=== PATIENT | female | born 1965 | race Caucasian/White ===

== ENCOUNTER 2021-06-18 12:41 | Emergency (ER) | payer OTHER, SELFPAY ==
--- NOTE | ~2021-06-18 | XR_ITS ---
EXAMINATION: XR CHEST CLINICAL INFORMATION: Chest pain COMPARISON: None TECHNIQUE: 2 views of the chest were obtained. FINDINGS: No significant abnormality is noted involving the heart, lungs, mediastinum, bony thorax or soft tissues. XR/XR chest 2V IMPRESSION: Unremarkable chest examination.
[2021-06-18 12:52] VITALS: BP 131/73; PULSE 100; RESP 18; O2SAT 99; BMI 25.2
[2021-06-18 13:29] VITALS: BP 134/73; PULSE 97; RESP 15; O2SAT 96
--- NOTE | 2021-06-18 13:35 | ED_ITS ---
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 Patient reports that she was at the store with her daughter when she started feeling very anxious. Patient reports that she was very tremorous and the next thing she knows she passed out. Her daughter was sitting next to her and brought her to emergency department. Patient reports that this happened to her several times. Patient denies CP, palpitations, presyncope, dizziness, weakness, malaise, abdominal pain, nausea, vomiting. Patient however does reports that she has been coughing for the past few weeks. She reports her cough is a dry cough no sputum no rhinorrhea, no congestion, no shortness of breath. Patient reports that she traveled to [place] last month and was admitted there for emphysema. Patient reports that her chest hurts from coughing. Related Data Previous Rx's Medication Instructions Recorded benzonatate 100 mg capsule 100 mg PO BID PRN #20 cap 06/18/21 Allergies Allergy/AdvReac Type Severity Reaction Status Date / Time diphenhydramine Allergy Unknown UNKNOWN Unverified 04/03/20 19:37 [From BENADRYL] dexamethasone [From Decadron] Allergy Unknown Verified 06/18/21 13:31 Review of Systems Review of Systems: Constitutional : No Weight loss, No Fever, No Chills, No Night Sweats, No Fatigue, No Malaise ENT/Mouth : No Hearing loss, No Ear Pain, No Nasal Congestion, No Sinus Pain, No Hoarseness, No sore throat, No Rhinorrhea, No Swallowing Difficulty Eyes: No Eye Pain, No Swelling, No Redness, No Foreign Body, No Discharge, No Vision Changes Cardiovascular : No Chest Pain, No SOB, No Dyspnea on Exertion, No Orthopnea, No Edema, No Palpitations Respiratory : Cough, No Sputum, No Wheezing, No Smoke Exposure, No Dyspnea Gastrointestinal : No Nausea, No Vomiting, No Diarrhea, No Constipation, No abdominal Pain, No Hematochezia, No Melena Genitourinary : no irregular bleeding, No Dysuria, No Urinary Frequency, No Hematuria, No Urinary Incontinence, No Urgency, No Flank Pain, No Urinary Flow Changes, No Hesitancy Musculoskeletal : No joint pain, No Myalgias, No Joint Swelling Skin : No Skin Lesions, No rash Neuro : No Weakness, No Numbness, No Paresthesias, No Loss of Consciousness, No Dizziness, No Headache Psych : No Anxiety/Panic, No Depression, No SI/HI/AH/VH, No Social Issues, Yes all other systems are reviewed and are negative PMFSH Social History Social History Advance Directives: No Advance Directives Information Provided: No Physical Exam Vital Signs: Vital Signs: Last Vital Signs Pulse 82 06/18/21 14:41 Resp 18 06/18/21 14:41 BP 126/54 L 06/18/21 14:41 Pulse Ox 99 06/18/21 14:41 BMI result Body Mass Index 25.2 Const: General: healthy appearing, no acute distress and well developed Nutritional Appearance: well nourished Orientation/consciousness: patient oriented x3 HENMT: Head: Yes normal to inspection, Yes normocephalic and Yes atraumatic Face and sinus: Yes normal facial exam Mouth: Normal oral and palatal mucosa present Throat: Yes posterior oropharynx normal, Yes tonsils normal and Yes uvula midline Eyes: General: appearance normal, both eyes and all related structures Neck: Neck: Yes normal visual inspection, Yes full ROM and Yes trachea midline Thyroid: Thyroid normal Resp: Effort & Inspection: normal respiratory effort, able to speak in complete sentences, no tracheal deviation and symmetric chest movement Auscultation: clear to auscultation bilaterally Cardio: Jugular venous distension: no JVD Rate: regular rate Heart sounds: S1 normal heart sound present, S2 normal heart sound present, no gallops and no murmurs GI: Inspection: Yes normal to inspection and No distended Palpation (GI): Soft to palpation, not firm, nontender and No hepatosplenomegaly present Auscultation: normal bowel sounds : General: Yes no CVA tenderness Back/Spine/Pelvis: Back: no CVA tenderness Skin: General skin exam: elasticity normal, turgor normal and dry skin Neuro: General: patient oriented x3 Psych: Appearance: grossly normal Mental Status: mental status grossly normal Speech and movement: Normal speech and movement present Affect: normal affect Attitude: cooperative Thought process: Normal thought process present Thought content: Normal thought content present Insight: Good insight present (Psych) Judgement: Good judgement present (Psych) Course Course Course Narrative: 56 years old female is here today after fainting episode at the store. Patient was at the grocery store with her daughter, started having an anxiety attack and the next thing she remembers she passed out. Patient reports that she has been dealing with an anxiety for a long time and has had those kind of episodes in the past. Patient denies presyncope, dizziness, weakness, CP, SOB with or without exertion. Patient denies any nausea or vomiting. Patient reports that she has been coughing in the last few weeks. Patient is fully vaccinated against COVID, denies any ill contacts. Patient reports that she has traveled to [place] month ago. Her symptoms of coughing without rhinitis, congestion. Patient reports to have a dry cough. We will do lab work, CBC, BMP troponin, patient is complaining of chest pressure most likely from cough pain reproducible , chest x-ray Reevaluation(s) Reevaluation #1: All lab work negative for any acute findings. Chest x-ray negative for acute processes. We will be discharging patient home. Patient reports that she has severe anxiety, takes risperidone and Klonopin at home. Patient has primary care provider and therapist that she sees. Patient was encouraged to follow-up with them. Patient states that she has an appointment with PCP on the . Medical Decision Making Lab Data Result diagrams: 06/18/21 14:10 06/18/21 14:37 Labs: Lab Results 06/18/21 06/18/21 06/18/21 Range/Units 12:48 14:10 14:10 WBC 6.3 (4.8-10.8) X10*3/uL RBC 4.16 L (4.20-5.50) X10*6/uL Hgb 11.1 L (12.0-16.0) g/dl Hct 36.1 L (37.0-47.0) % MCV 86.8 (80.0-98.0) fL MCH 26.7 L (27.0-33.0) pg MCHC 30.7 L (31.0-35.0) g/dl RDW 14.2 (11.0-16.0) % Plt Count 306 (160-400) X10*3/uL MPV 10.0 (9.4-12.3) fL Immature Gran % (Auto) 0.2 (0.0-0.4) % Neut % (Auto) 55.2 (45-73) % Lymph % (Auto) 31.4 (20-40) % [place] % (Auto) 7.4 (2-11) % Eos % (Auto) 5.2 H (0-4) % Baso % (Auto) 0.6 (0-2) % Lymph # (Auto) 2.0 (1.2-4.9) X10*3/uL [place] # (Auto) 0.5 (0.1-1.2) X10*3/uL Eos # (Auto) 0.3 (0.0-0.4) X10*3/uL Baso # (Auto) 0.0 (0.0-0.2) X10*3/uL Abs Immat Gran (auto) 0.01 (0.00-0.03) X10*3/uL Absolute Neuts (auto) 3.5 (2.0-8.3) x10*3/uL Absolute Nucleated RBC 0.000 (0.0-0.012) X10*3/uL Nucleated RBC % (auto) 0.0 (0.0-0.2) /100WBC Sodium (135-145) mmol/L Potassium (3.3-5.1) mmol/L Chloride (96-108) mmol/L Carbon Dioxide (22-29) mmol/L Anion Gap (12-20) BUN (9-16) mg/dL Creatinine (0.5-1.4) mg/dL Estim Creat Clear Calc Estimated GFR POC Glucose 120 H (60-115) mg/dL Random Glucose (60-115) mg/dL Calcium (8.4-10.2) mg/dL Troponin I High Sens < 3.5 (<3.5-17.0) ng/L Urine Color Urine Appearance Urine pH (5.0-8.0) Ur Specific [place] (1.005-1.025) Urine Protein (NEG-TRACE) MG/DL Urine Glucose (UA) (NEG) MG/DL Urine Ketones (NEG) MG/DL Urine Blood (NEG) Urine Nitrite (NEG) Ur Leukocyte Esterase (NEG) COVID-19 ([facility]) (Negative) COVID-19 Clin Com 06/18/21 06/18/21 06/18/21 Range/Units 14:10 14:21 14:37 WBC (4.8-10.8) X10*3/uL RBC (4.20-5.50) X10*6/uL Hgb (12.0-16.0) g/dl Hct (37.0-47.0) % MCV (80.0-98.0) fL MCH (27.0-33.0) pg MCHC (31.0-35.0) g/dl RDW (11.0-16.0) % Plt Count (160-400) X10*3/uL MPV (9.4-12.3) fL Immature Gran % (Auto) (0.0-0.4) % Neut % (Auto) (45-73) % Lymph % (Auto) (20-40) % [place] % (Auto) (2-11) % Eos % (Auto) (0-4) % Baso % (Auto) (0-2) % Lymph # (Auto) (1.2-4.9) X10*3/uL [place] # (Auto) (0.1-1.2) X10*3/uL Eos # (Auto) (0.0-0.4) X10*3/uL Baso # (Auto) (0.0-0.2) X10*3/uL Abs Immat Gran (auto) (0.00-0.03) X10*3/uL Absolute Neuts (auto) (2.0-8.3) x10*3/uL Absolute Nucleated RBC (0.0-0.012) X10*3/uL Nucleated RBC % (auto) (0.0-0.2) /100WBC Sodium 140 (135-145) mmol/L Potassium 4.4 (3.3-5.1) mmol/L Chloride 107 (96-108) mmol/L Carbon Dioxide 27 (22-29) mmol/L Anion Gap 10 L (12-20) BUN 10 (9-16) mg/dL Creatinine 0.68 (0.5-1.4) mg/dL Estim Creat Clear Calc 70.8 Estimated GFR > 60 POC Glucose (60-115) mg/dL Random Glucose 80 (60-115) mg/dL Calcium 9.3 (8.4-10.2) mg/dL Troponin I High Sens (<3.5-17.0) ng/L Urine Color YELLOW Urine Appearance CLEAR Urine pH 6.5 (5.0-8.0) Ur Specific [place] 1.020 (1.005-1.025) Urine Protein NEG (NEG-TRACE) MG/DL Urine Glucose (UA) NEG (NEG) MG/DL Urine Ketones NEG (NEG) MG/DL Urine Blood NEG (NEG) Urine Nitrite NEG (NEG) Ur Leukocyte Esterase NEG (NEG) COVID-19 ([facility]) Negative (Negative) COVID-19 Clin Com See Note Imaging Data Chest x-ray: Attestation: I personally reviewed and interpreted this imaging study as follows: Radiologist's impression: FINDINGS: No significant abnormality is noted involving the heart, lungs, mediastinum, bony thorax or soft tissues. Discharge Plan Discharge Clinical Impression: Chronic anxiety, Cough Patient Disposition: Home, Self-Care Instructions: Syncope (ED), Generalized Anxiety Disorder (ED), Chronic Cough (ED) Additional Instructions: Lo vieron aqu? hoy despu?s de tener un episodio de ansiedad. Inform? s?ntomas similares antes. Mackenzie un seguimiento con vick proveedor de atenci?n primaria. Se quej? de tos. Vick radiograf?a fue normal. Todos tus laboratorios tambi?n fueron normales. Mantenga vick eric con vick proveedor de atenci?n primaria el d?a 15 de [address]. . Puedes regresar al servicio de urgencias si cali s?ntomas empeoran o si experimenta alg?n s?ntoma adicional preocupante. Prescriptions: New benzonatate 100 mg capsule 100 mg PO BID PRN (Reason: cough) Qty: 20 RF: 0 Referrals: Laron Will NP [Primary Care Provider] - 1 week (Anxiety, syncope) Interventions: ED Discharge Assessment Last Done: 06/18/21 16:12 Discharge Date/Time: 06/18/21 16:12
[2021-06-18] MEDS: diazePAM 2 MG TABLET PO (14:16)
[2021-06-18] MEDS: Benzonatate 100 MG CAPSULE PO (14:16)
[2021-06-18] MEDS: 0.9 % Sodium Chloride 500 ML IV (14:18)
[2021-06-18 14:21] LABS: Basophils Percent Auto 0.6 % (0-2); Eosinophils Absolute Auto 0.3 X10*3/uL (0.0-0.4); Eosinophils Percent Auto 5.2 % (0-4); Hematocrit 36.1 % (37.0-47.0); Hemoglobin 11.1 g/dl (12.0-16.0); Imm Gran Abs Auto 0.01 X10*3/uL (0.00-0.03); Imm Gran Pct Auto 0.2 % (0.0-0.4); Lymphocytes Percent Auto 31.4 % (20-40); MANUAL DIFF FLAG NO; Mean Corpuscular HGB Conc 30.7 g/dl (31.0-35.0); Mean Corpuscular Hemoglobin 26.7 pg (27.0-33.0); Mean Corpuscular Volume 86.8 fL (80.0-98.0); Monocytes Absolute Auto 0.5 X10*3/uL (0.1-1.2); Monocytes Percent Auto 7.4 % (2-11); Neutrophils Absolute Auto 3.5 x10*3/uL (2.0-8.3); Neutrophils Percent Auto 55.2 % (45-73); Platelet Count 306 X10*3/uL (160-400); Red Blood Count 4.16 X10*6/uL (4.20-5.50); Red Cell Distribution Width 14.2 % (11.0-16.0); White Blood Count 6.3 X10*3/uL (4.8-10.8)
[2021-06-18 14:23] LABS: Glucose, Whole Blood 120 mg/dL (60-115)
[2021-06-18 14:41] VITALS: BP 126/54; PULSE 82; RESP 18; O2SAT 99
[2021-06-18 14:42] LABS: Appearance Urine CLEAR; Color Urine YELLOW; Glucose Urine UA NEG (NEG); Leukocyte Esterase Urine NEG (NEG); Nitrite Urine NEG (NEG); PH 6.5 (5.0-8.0); Urine Blood NEG (NEG); Urine Ketones NEG (NEG); Urine Protein NEG (NEG-TRACE)
[2021-06-18 14:43] LABS: Troponin-I High Sensitivity < 3.5 ng/L (<3.5-17.0)
[2021-06-18 14:46] LABS: COVID-19 Test Negative (Negative); IDNOW Serial# 9DD0AD1C
[2021-06-18 15:23] LABS: Anion Gap 10 (12-20); Blood Urea Nitrogen 10 mg/dL (9-16); Calcium 9.3 mg/dL (8.4-10.2); Carbon Dioxide 27 mmol/L (22-29); Chloride 107 mmol/L (96-108); Creatinine Clr Calc Pharmacy 70.8; Estimated Glomerular Filt Rate > 60; Glucose Random 80 mg/dL (60-115); Potassium 4.4 mmol/L (3.3-5.1); Sodium 140 mmol/L (135-145)
== END 2021-06-18 16:12 | disposition home or self-care (01) ==
PROVIDERS: Nurse Practitioner Family; Emergency Provider Emergency Medicine Emergency Medical Services; PCP Nurse Practitioner Family
DX: F41.9 Anxiety disorder, unspecified (principal); Z20.822 Contact with and (suspected) exposure to COVID-19; R05.9 Cough, unspecified
CPT/HCPCS: 36415; 71046; 80048; 81003; 82947; 84484; 85025; 87635; 96360; 99284

== ENCOUNTER 2021-10-27 08:17 | Emergency (ER) | payer OTHER, SELFPAY ==
--- NOTE | 2021-10-27 | ECG_ITS ---
Test Reason : cp Blood Pressure : / mmHG Vent. Rate : 089 BPM Atrial Rate : 089 BPM P-R Int : 148 ms QRS Dur : 084 ms QT Int : 342 ms P-R-T Axes : 052 007 061 degrees QTc Int : 416 ms Normal sinus rhythm Normal ECG When compared with ECG of 12-FEB-2020 07:47, No significant change was found Referred By: Generic ED Physician Electronically Signed By:Magen Scott
--- NOTE | ~2021-10-27 | XR_ITS ---
EXAMINATION: XR CHEST CLINICAL INFORMATION: Chest pain COMPARISON: Chest radiographs 06/18/2021, 10/04/2019 TECHNIQUE: Portable upright AP view of the chest was obtained. FINDINGS: There is no pneumothorax or pleural reaction. There is no lobar or segmental airspace consolidation or definite groundglass opacity. The costophrenic sulci are clear. The heart is normal in size. The vascularity is normal. The hilar and mediastinal contours and visualized bony structures are unremarkable. XR/XR chest 1V IMPRESSION: Unremarkable examination.
--- NOTE | 2021-10-27 08:31 | ED_ITS ---
HPI - Chest Pain General Chief Complaint: Chest Pain Stated Complaint: chest pain Time Seen by Provider: 10/27/21 08:31 Source: patient Mode of arrival: ambulatory Limitations: no limitations History of Present Illness HPI narrative: 56 y/o female with history of anxiety, depression, HLD, asthma, allergies presenting with intermittent, sharp, 8/10 nonradiating left sided chest pains that started yesterday when she was sitting on the couch. She states they last only seconds, come on fast and go away fast. They are not associated with SOB, nausea, diaphoresis or dizziness. She reports a pounding heart and fast heart rate when they happen. MD complaint: chest pain Pertinent past history: asthma Onset (ago): day(s) (1) Timing of current episode: episodic Prior episodes: No Onset: during rest Pain location: left chest Pain radiation: none Severity: severe Pain scale (0-10): 8 Quality: sharp Relieving factors: nothing Exacerbating factors: nothing Associated symptoms: palpitations Treatment prior to arrival: none Risk Factors Coronary artery disease risk factors: hyperlipidemia Thoracic aortic dissection risk factors: none Related Data On Oral Contraceptives: No Previous Rx's Medication Instructions Recorded benzonatate 100 mg capsule 100 mg PO BID PRN #20 cap 06/18/21 Allergies Allergy/AdvReac Type Severity Reaction Status Date / Time diphenhydramine Allergy Unknown UNKNOWN Verified 10/27/21 08:32 [From BENADRYL] dexamethasone [From Decadron] Allergy Unknown Verified 10/27/21 08:32 Review of Systems Review of Systems: Constitutional: No Fever, No Chills ENT/Mouth: No sore throat, No Rhinorrhea, No Swallowing Difficulty Eyes: No Eye Pain, No Swelling, No Redness Cardiovascular: + Chest Pain, No SOB, No Orthopnea, No Edema Respiratory: No Cough, No Sputum, No Wheezing, No dyspnea Gastrointestinal: No Nausea, No Vomiting, No Diarrhea, No abdominal Pain Genitourinary: No Dysuria, No Urinary Frequency, No Hematuria Musculoskeletal: No joint pain, No Myalgias Skin: No Skin Lesions, No rash Neuro: No Weakness, No Numbness, No Dizziness, No Headache Psych: + Anxiety/Panic, No Depression Heme/Lymph: No Bruising, No Lymphadenopathy Endocrine: No Polyuria, No Polydipsia PMFSH Social History Social History Advance Directives: No Advance Directives Information Provided: No Physical Exam Vital Signs: Vital Signs: Last Vital Signs Temp 98.4 F 10/27/21 09:38 Pulse 75 10/27/21 09:38 Resp 16 10/27/21 09:38 BP 96/43 L 10/27/21 09:38 Pulse Ox 99 10/27/21 09:38 BMI result Body Mass Index 29.2 Appearance: Alert. Oriented X3. No acute distress. Eyes: Pupils equal, round and reactive to light. ENT: Pharynx normal. Neck: Normal inspection. Neck supple. CVS: Normal heart rate and rhythm. Pulses normal. Respiratory: No respiratory distress. Breath sounds normal. Abdomen: Soft and nontender. +BS x4 Skin: Skin warm and dry. Normal skin color. Normal skin turgor. No rashes. Extremities: No lower extremity edema. No calf tenderness or swelling. Neuro: Oriented X 3. No motor deficit. No sensory deficit. Course Course Course Narrative: 56 y/o female with history of HLD, asthma, anxiety/depression presenting with intermittent nonradiating sharp pains on the left side of her chest that started yesterday and are associated with palpitations. No current chest pain. She is worried about her heart, admits to being anxious. No SOB. No PE risk factors, only CAD risk factor is HLD. No hx HTN, doubt dissection. EKG is normal. Will get high sensitivity troponin and monitor. Reevaluation(s) Reevaluation #1: Troponin is negative. CXR clear. Remains chest pain free. At this time life- threatening etiology of intermittent chest pains is very unlikely, anxiety likely contributing. Will refer to Cardiology for further work up. She agrees to follow up wtih her PCP or come back to the ER if symptoms worsen or change. court interpreter used to correctional substance abuse counselor and answer all questions. MDM - Chest Pain Medical Records Data Attestation: I reviewed the patient's medical records. Lab Data Attestation: I reviewed the patient's lab results. Result diagrams: 10/27/21 08:41 10/27/21 08:41 Labs: Lab Results 10/27/21 10/27/21 10/27/21 Range/Units 08:41 08:41 08:41 WBC 5.7 (4.8-10.8) X10*3/uL RBC 4.18 L (4.20-5.50) X10*6/uL Hgb 11.3 L (12.0-16.0) g/dl Hct 36.6 L (37.0-47.0) % MCV 87.6 (80.0-98.0) fL MCH 27.0 (27.0-33.0) pg MCHC 30.9 L (31.0-35.0) g/dl RDW 14.5 (11.0-16.0) % Plt Count 343 (160-400) X10*3/uL MPV 9.6 (9.4-12.3) fL Immature Gran % (Auto) 0.4 (0.0-0.4) % Neut % (Auto) 54.4 (45-73) % Lymph % (Auto) 31.6 (20-40) % [place] % (Auto) 7.8 (2-11) % Eos % (Auto) 5.1 H (0-4) % Baso % (Auto) 0.7 (0-2) % Lymph # (Auto) 1.8 (1.2-4.9) X10*3/uL [place] # (Auto) 0.4 (0.1-1.2) X10*3/uL Eos # (Auto) 0.3 (0.0-0.4) X10*3/uL Baso # (Auto) 0.0 (0.0-0.2) X10*3/uL Abs Immat Gran (auto) 0.02 (0.00-0.03) X10*3/uL Absolute Neuts (auto) 3.1 (2.0-8.3) x10*3/uL Absolute Nucleated RBC 0.000 (0.0-0.012) X10*3/uL Nucleated RBC % (auto) 0.0 (0.0-0.2) /100WBC Sodium 140 (135-145) mmol/L Potassium 3.8 (3.3-5.1) mmol/L Chloride 107 (96-108) mmol/L Carbon Dioxide 24 (22-29) mmol/L Anion Gap 13 (12-20) BUN 11 (9-16) mg/dL Creatinine 0.74 (0.5-1.4) mg/dL Estim Creat Clear Calc 72.8 Estimated GFR > 60 Random Glucose 121 H (60-115) mg/dL Calcium 9.8 (8.4-10.2) mg/dL Total Bilirubin 0.3 (0.0-1.0) mg/dL AST 25 (5-31) U/L ALT 36 H (0-31) U/L Alkaline Phosphatase 86 (39-117) U/L Troponin I High Sens < 3.5 (<3.5-17.0) ng/L Total Protein 7.1 (6.5-8.0) g/dL Albumin 4.2 (3.5-5.0) g/dL ECG Data ECG #1: Attestation: I personally reviewed and interpreted this ECG as follows: ECG interpretation date: 10/27/21 ECG interpretation time: 10:26 Interpretation: normal sinus rhythm, HR 89 bpm, normal GA interval, normal QTc, no ST segment elevations or depressions, normal ECG Discharge Plan Discharge Clinical Impression: Atypical chest pain Patient Disposition: Home, Self-Care Instructions: Chest Pain (DC) Additional Instructions: Your workup today was normal. Your EKG and labs were normal. Recommend following up with your doctor as well as a Bow Repairer [employer] for further workup - name and number below. If you develop new or worsening symptoms call 911 or come back to the ER for further evaluation. Vick trabajo de hoy fue normal. Vick electrocardiograma y cali laboratorios fueron normales. Recomiende hacer un seguimiento con vick m?dico y con un cardi?logo para realizar m?s estudios; nombre y n?adriana a continuaci?n. Si desarrolla s?ntomas nuevos o que empeoran, llame al 911 o regrese a la tamara de emergencias para lyudmila evaluaci?n adicional. Prescriptions: No Action benzonatate 100 mg capsule 100 mg PO BID PRN (Reason: cough) Qty: 20 0RF Referrals: Laron Will NP [Primary Care Provider] - 1 week (chest pain) Alejandro Kang MD [Physician] - 1 week (left sided chest pain) Print Language: French
[2021-10-27 08:32] VITALS: BP 137/67; PULSE 84; RESP 18; TEMP 36.8; O2SAT 99; BMI 29.2
[2021-10-27 08:46] LABS: MANUAL DIFF FLAG NO
[2021-10-27 08:47] LABS: Basophils Percent Auto 0.7 % (0-2); Eosinophils Absolute Auto 0.3 X10*3/uL (0.0-0.4); Eosinophils Percent Auto 5.1 % (0-4); Hematocrit 36.6 % (37.0-47.0); Hemoglobin 11.3 g/dl (12.0-16.0); Imm Gran Abs Auto 0.02 X10*3/uL (0.00-0.03); Imm Gran Pct Auto 0.4 % (0.0-0.4); Lymphocytes Absolute Auto 1.8 X10*3/uL (1.2-4.9); Lymphocytes Percent Auto 31.6 % (20-40); Mean Corpuscular HGB Conc 30.9 g/dl (31.0-35.0); Mean Corpuscular Volume 87.6 fL (80.0-98.0); Mean Platelet Volume 9.6 fL (9.4-12.3); Monocytes Absolute Auto 0.4 X10*3/uL (0.1-1.2); Monocytes Percent Auto 7.8 % (2-11); Neutrophils Absolute Auto 3.1 x10*3/uL (2.0-8.3); Neutrophils Percent Auto 54.4 % (45-73); Platelet Count 343 X10*3/uL (160-400); Red Blood Count 4.18 X10*6/uL (4.20-5.50); Red Cell Distribution Width 14.5 % (11.0-16.0); White Blood Count 5.7 X10*3/uL (4.8-10.8)
[2021-10-27 09:03] LABS: Alanine Aminotransferase 36 U/L (0-31); Albumin Level 4.2 g/dL (3.5-5.0); Alkaline Phosphatase 86 U/L (39-117); Anion Gap 13 (12-20); Aspartate Amino Transferase 25 U/L (5-31); Bilirubin Total 0.3 mg/dL (0.0-1.0); Blood Urea Nitrogen 11 mg/dL (9-16); Calcium 9.8 mg/dL (8.4-10.2); Carbon Dioxide 24 mmol/L (22-29); Chloride 107 mmol/L (96-108); Creatinine Clr Calc Pharmacy 72.8; Estimated Glomerular Filt Rate > 60; Glucose Random 121 mg/dL (60-115); Potassium 3.8 mmol/L (3.3-5.1); Sodium 140 mmol/L (135-145); Total Protein 7.1 g/dL (6.5-8.0)
[2021-10-27 09:10] LABS: Troponin-I High Sensitivity < 3.5 ng/L (<3.5-17.0)
[2021-10-27 09:38] VITALS: BP 96/43; PULSE 75; RESP 16; TEMP 36.9; O2SAT 99
== END 2021-10-27 10:49 | disposition home or self-care (01) ==
PROVIDERS: Emergency Provider Emergency Medicine; PCP Nurse Practitioner Family
DX: R07.89 Other chest pain (principal)
CPT/HCPCS: 36415; 71045; 80053; 84484; 85025; 93005; 99283

== ENCOUNTER 2023-06-21 20:10 | Emergency (ER) | payer MEDICAID, SELFPAY ==
--- NOTE | ~2023-06-21 | CT_ITS ---
EXAMINATION: CT CHEST WITHOUT CONTRAST CLINICAL INFORMATION: Chest wall pain after fall COMPARISON: Chest radiograph 10/27/2021 TECHNIQUE: Multidetector volumetric CT imaging of the chest was done. Axial MIP volume rendering provided. Sagittal and coronal reformatted images were obtained. This CT examination was performed using dose optimization techniques as appropriate, variously including the following: *Automated exposure control *Adjustment of mA and/or kV according to patient size (this includes techniques or standardized protocols for targeted exams where dose is matched to indication/reason for exam; i.e. extremities or head) *Use of iterative reconstruction technique DLP: 297 mGy-cm FINDINGS: CASTING TESTER: Hernia mesh overlies the upper abdomen LUNGS: The lungs are clear with no evidence of inflammation or worrisome nodules. A calcified granuloma is noted at the right lung base. MEDIASTINUM: The mediastinum is normal. CORONARY ARTERY CALCIFICATION: None visualized on this study. PLEURA: There is no no pneumothorax or hemothorax. No pleural effusion. No pleural mass or thickening. AXILLA: No lymphadenopathy. UPPER ABDOMEN: Unremarkable. OSSEOUS STRUCTURES: There is an acute fracture of the eighth lateral left rib. No other rib fractures are seen. The thoracic spine appears unremarkable. No clavicular or scapular fractures are seen. CT/CT chest wo IV con IMPRESSION: Acute left eighth lateral rib fracture. No pneumothorax or hemothorax. No other fractures are seen. Fleischner guidelines were followed.
--- NOTE | ~2023-06-21 | CT_ITS ---
EXAMINATION: CT head/brain wo IV con, CT cervical spine wo IV con INDICATION INFORMATION: Reason for Exam Fall, dizziness COMPARISON: None TECHNIQUE: Separate noncontrast CT examinations of the head and cervical spine were performed. Coronal and sagittal images were created for each examination at the technologist workstation. This CT examination was performed using dose optimization techniques as appropriate, variously including the following: *Automated exposure control *Adjustment of mA and/or kV according to patient size (this includes techniques or standardized protocols for targeted exams where dose is matched to indication/reason for exam; i.e. extremities or head) *Use of iterative reconstruction technique DLP: 854 mGy-cm FINDINGS: Head: No acute osseous or soft tissue abnormality. The mastoids are clear. Right ethmoid and maxillary sinus mucosal thickening. There is no evidence of acute intracranial hemorrhage or territorial infarction. No abnormal mass effect or midline shift is seen. Sanchez to white matter differentiation is well preserved. No extra-axial fluid collections are identified. No hydrocephalus. No significant volume loss. Patchy periventricular and deep white matter hypoattenuation is consistent with mild small vessel ischemic changes. Cervical spine: There is no evidence of acute cervical spine fracture. Vertebral bodies remain normal in height. Cervical straightening. Degenerative disc disease at C5-C6. No pre- or paravertebral soft tissue abnormality is identified. Visualized portions of the lung apices are unremarkable. The thyroid gland is unremarkable. CT/CT head/brain wo IV con IMPRESSION: 1. No acute intracranial abnormality. 2. No cervical spine fracture or traumatic malalignment.
--- NOTE | ~2023-06-21 | CT_ITS ---
EXAMINATION: CT head/brain wo IV con, CT cervical spine wo IV con INDICATION INFORMATION: Reason for Exam Fall, dizziness COMPARISON: None TECHNIQUE: Separate noncontrast CT examinations of the head and cervical spine were performed. Coronal and sagittal images were created for each examination at the technologist workstation. This CT examination was performed using dose optimization techniques as appropriate, variously including the following: *Automated exposure control *Adjustment of mA and/or kV according to patient size (this includes techniques or standardized protocols for targeted exams where dose is matched to indication/reason for exam; i.e. extremities or head) *Use of iterative reconstruction technique DLP: 854 mGy-cm FINDINGS: Head: No acute osseous or soft tissue abnormality. The mastoids are clear. Right ethmoid and maxillary sinus mucosal thickening. There is no evidence of acute intracranial hemorrhage or territorial infarction. No abnormal mass effect or midline shift is seen. Sanchez to white matter differentiation is well preserved. No extra-axial fluid collections are identified. No hydrocephalus. No significant volume loss. Patchy periventricular and deep white matter hypoattenuation is consistent with mild small vessel ischemic changes. Cervical spine: There is no evidence of acute cervical spine fracture. Vertebral bodies remain normal in height. Cervical straightening. Degenerative disc disease at C5-C6. No pre- or paravertebral soft tissue abnormality is identified. Visualized portions of the lung apices are unremarkable. The thyroid gland is unremarkable. CT/CT cervical spine wo IV con IMPRESSION: 1. No acute intracranial abnormality. 2. No cervical spine fracture or traumatic malalignment.
[2023-06-21 20:23] VITALS: BP 136/94; PULSE 63; O2SAT 94
[2023-06-21 20:27] VITALS: BP 129/64; PULSE 67; RESP 18; TEMP 36.5; O2SAT 96; BMI 25.5
--- NOTE | 2023-06-21 21:25 | ED.FALL ---
HPI - Fall General Chief Complaint: Fall Stated Complaint: FALL RIB & LEFT WRIST PAIN Time Seen by Provider: 06/21/23 20:18 Source: patient, family and qualitative field coordinator Mode of arrival: EMS History of Present Illness HPI Narrative: 58-year-old female, not on blood thinners, who fell on 11/16 when she suffered a mechanical slip and fall on the 4th step of a stairway, fell backwards struck the back of her head but did not lose consciousness. Patient has had associated neck pain, scalp pain but primarily patient complains of left-sided rib pain with some nausea and dizziness. Related Data Previous Rx's Medication Instructions Recorded benzonatate 100 mg capsule 100 mg PO BID PRN cough #20 caps 06/18/21 Allergies Allergy/AdvReac Type Severity Reaction Status Date / Time diphenhydramine Allergy Unknown UNKNOWN Verified 06/21/23 20:39 [From BENADRYL] dexamethasone [From Decadron] Allergy Unknown Verified 06/21/23 20:39 Review of Systems Review of Systems: Pertinent positives and negatives as stated in HPI [facility] Past Medical History Source: nursing notes reviewed Social History Social History Alcohol intake: never Smoked in Last 30 Days: No Use of substances other than those prescribed or required for medical reasons: No Advance Directives: No Advance Directives Information Provided: No Patient : No Physical Exam Vital Signs: Vital Signs: Last Vital Signs Temp 97.7 F 06/21/23 20:27 Pulse 67 06/21/23 20:27 Resp 18 06/21/23 20:27 BP 129/64 06/21/23 20:27 Pulse Ox 96 06/21/23 20:27 O2 Del Method Room Air 06/21/23 20:27 BMI result Body Mass Index 25.5 VITAL SIGNS: Reviewed. GENERAL: Well developed, well nourished, in no acute distress. HEAD: Normocephalic/atraumatic EYES: PERRLA, EOMI EARS: Ext canals without abnormality NOSE: Nares patent bilateral OROPHARYNX: no oral lesions noted, posterior pharynx clear NECK: C-collar in place, no midline cervical spine step-offs or pain noted LUNGS: Normal breath sounds. No adventitious sounds or accessory muscle use. SpO2<96>; CHEST WALL: There is mild tenderness to palpation without crepitus along the lower border of the left chest wall, there is no deformity but also no point tenderness. CARDIOVASCULAR: Regular rate and rhythm without noted murmurs ABDOMEN: Soft, non-tender, non-distended with bowel sounds. PELVIS: Stable, nontender MUSCULOSKELETAL: No tenderness, deformities, or effusions noted on gross inspection. EXTREMITIES: No cyanosis, clubbing or edema. SKIN: Inspection of the skin reveals no rashes NEUROLOGIC: Alert and oriented x 4. Strength and sensation to light touch were grossly intact x 4. Medications Administered Discontinued Medications Generic Name Dose Route Start Last Admin Trade Name Freq PRN Reason Stop Dose Admin Acetaminophen 975 mg 06/21/23 21:08 06/21/23 21:42 Acetaminophen 325 Mg Tablet PO 06/21/23 21:09 975 mg ONCE ONE Administration Ibuprofen 400 mg 06/21/23 21:08 06/21/23 21:42 Ibuprofen 400 Mg Tablet PO 06/21/23 21:09 400 mg ONCE ONE Administration Medical Decision Making Medical Decision Making MDM Narrative: 58-year-old female with history and clinical presentation consistent with mechanical fall and residual left-sided chest discomfort as well as neck pain, will image chest/head/cervical spine via CT scan. Patient also received combination analgesics. I reviewed all imaging studies and head CT is negative for intracranial hemorrhage, cervical spine is negative for fracture or subluxation otherwise my interpretation is in agreement with radiology's impression. CT of the chest shows an acute fracture of the left 8th rib, nondisplaced no evidence of pneumothorax. Patient received application of lidocaine patch and will also be discharged with an incentive spirometer for preventative measures against development of pneumonia. Differential Diagnosis Differential Diagnoses: The differential diagnosis associated with the presentation includes Please see the discussion Admission/Observation Consideration of admission/observation: Escalation of care including admission/observation considered Please see the discussion above Radiology Impression Discussion of test interpretation with radiology: I have reviewed the radiologist's reading. Radiologist Impression: Please see the discussion above External Record Review External record reviewed: Outpatient record, Prior outpatient labs and Prior outpatient radiology Discharge Plan Discharge Clinical Impression: Fall, Fracture of rib of left side Patient Disposition: Home, Self-Care Instructions: Rib Fracture (ED), Fall Prevention for Older Adults (ED), How to Use an Incentive Spirometer (ED) Additional Instructions: 1. Tylenol 1000 mg, por v?a oral, cada 6 horas seg?n sea necesario para controlar el dolor. No exceda los 4000 mg en 24 horas. 2. Ibuprofeno 400 mg, por v?a oral con leche o comida, cada 6 horas seg?n sea necesario para controlar el dolor. Combin? flakito medicamento con Tylenol para mejorar el alivio de los s?ntomas. 3. Se recomienda un parche de lidoca?na de venta tatiana; apl?quelo en el ?toni de m?xima sensibilidad mary se indica en el paquete exterior. 4. Utilice el espir?metro incentivador de 8 a 10 veces por hora mientras est? despierto, esto evitar? que desarrolle neumon?a. 5. Mackenzie un seguimiento con vick proveedor de atenci?n primaria en los pr?ximos 1 o 2 d?as. Regrese a la tamara de emergencias si los s?ntomas empeoran. 1. Tylenol 1000 mg, orally, every 6 hours as needed for pain control. Do not exceed 4000 mg within 24 hours. 2. Ibuprofen 400 mg, orally with milk or food, every 6 hours as needed for pain control. Combined this medication with Tylenol for improved symptom relief. 3. Recommend [id number]-hstysfp lidocaine patch, apply to area of maximal tenderness as directed on the outside packaging. 4. Please use the incentive spirometer, 8-10 times an hour while awake, this will prevent you from developing pneumonia. 5. Please follow-up with your primary care provider in the next 1-2 days. Return to the ER for any worsening symptoms. Prescriptions: No Action benzonatate 100 mg capsule 100 mg PO BID PRN (Reason: cough) Qty: 20 0RF Print Language: American
[2023-06-21] MEDS: Acetaminophen 325 MG TABLET 975 MG PO (21:42)
[2023-06-21] MEDS: Ibuprofen 400 MG TABLET PO (21:42)
[2023-06-21] MEDS: Lidocaine 4 % Patch ADH..PATCH 1 PATCH TRANSDERMA (23:33)
== END 2023-06-21 23:46 | disposition home or self-care (01) ==
PROVIDERS: Emergency Provider Student in an Organized Health Care Education/Training Program
DX: S22.32XA Fracture of one rib, left side, initial encounter for closed fracture (principal); M54.50 Low back pain, unspecified; R51.9 Headache, unspecified; M54.2 Cervicalgia; R42 Dizziness and giddiness; W10.9XXA Fall (on) (from) unspecified stairs and steps, initial encounter; Y93.9 Activity, unspecified; Y92.9 Unspecified place or not applicable; Y99.9 Unspecified external cause status
CPT/HCPCS: 70450; 71250; 72125; 99284

== ENCOUNTER 2023-06-27 11:20 | Emergency (ER) | payer OTHER, SELFPAY ==
--- NOTE | ~2023-06-27 | XR_ITS ---
EXAMINATION: XR CHEST CLINICAL INFORMATION: Pain COMPARISON: Chest radiograph from 10/27/2021 TECHNIQUE: 2 views of the chest were obtained. FINDINGS: No focal consolidation. No pneumothorax. Trachea is midline. Cardiac mediastinal silhouette is not enlarged. No large pleural effusion. Degenerative changes of the thoracolumbar spine. Soft tissues are unremarkable. XR/XR chest 2V IMPRESSION: No acute cardiopulmonary process.
[2023-06-27 11:43] VITALS: BP 134/59; PULSE 92; RESP 18; TEMP 36.6; O2SAT 96; BMI 24.2
--- NOTE | 2023-06-27 11:48 | ED_ITS ---
HPI - Chest Pain General Chief Complaint: Chest Pain Stated Complaint: Fx rib not getting better/Dizziness Time Seen by Provider: 06/27/23 14:00 Source: patient and paraprofessional interpreter Mode of arrival: ambulatory Limitations: no limitations History of Present Illness HPI narrative: 58-year-old female return to the ED for evaluation of left chest wall pain. Patient sustained a mechanical fall on 06/21/2023 causing left 8th rib fracture, patient was instructed to take Tylenol/ibuprofen if needed for pain returned today for persistent of severe pain and patient is been having hard time to do the breathing exercises that she was instructed to do. Related Data Previous Rx's Medication Instructions Recorded benzonatate 100 mg capsule 100 mg PO BID PRN cough #20 caps 06/18/21 oxycodone 5 mg tablet 5 mg PO Q8H PRN pain #20 tabs 06/27/23 Allergies Allergy/AdvReac Type Severity Reaction Status Date / Time No Known Allergies Allergy Verified 06/27/23 11:52 Review of Systems 2 Review of Systems: All other systems are reviewed and are negative Constitutional: Reports as per HPI and Reports no additional constitutional complaints Eyes: Reports as per HPI and Reports no additional eye complaints Reports system reviewed and no additional complaints, except as documented Cardiovascular: Reports as per HPI and Reports no additional cardiovascular complaints Respiratory: Reports as per HPI and Reports no additional respiratory complaints Gastrointestinal: Reports as per HPI and Reports no additional gastrointestinal complaints Genitourinary: Reports no additional female genitourinary complaints Musculoskeletal: Reports no additional musculoskeletal complaints Skin/Breast: Reports system reviewed and no additional complaints, except as docu Psychiatric: Reports no additional psychiatric complaints Endocrine: Reports no additional endocrine complaints Hematologic/Lymphatic: Reports no additional hematologic/lymphatic complaints Allergic/Immunologic: Reports no additional allergic/immunologic complaints Reports system reviewed and no additional complaints, except as documented and Reports Abnormal speech present [facility] Social History Social History Alcohol intake: never Advance Directives: No Advance Directives Information Provided: Yes Physical Exam 2 Vital Signs: Vital Signs: Last Vital Signs Temp 97.8 F 06/27/23 11:43 Pulse 92 06/27/23 11:43 Resp 18 06/27/23 11:43 BP 134/59 L 06/27/23 11:43 Pulse Ox 96 06/27/23 11:43 O2 Del Method Room Air 06/27/23 11:43 BMI result Body Mass Index 24.2 Vital signs have been reviewed and appear to be correct. Blood pressure elevated. Heart rate normal. Respiratory rate normal. Temperature normal. Oxygen saturation normal. Appearance: Alert. Oriented X3. No acute distress. Head: Normal external exam. Normocephalic. Atraumatic. No Arce signs noted. No raccoon eyes noted Eyes: PERRLA. EOMI. Conjunctiva and sclera normal. Eyelids normal. ENT: TM's Normal. Pharynx normal. Uvula midline. Moist mucous membranes. No trismus noted. No drooling noted. No muffled voice noted. Neck: Normal inspection. Neck supple. FROM. No adenopathy. Thyroid Normal. No meningeal signs. No neck mass noted. CVS: Normal heart rate and rhythm. Heart sound normal. No murmurs noted. Pulses normal throughout. Respiratory: No respiratory distress. Painless inspiration. Breath sounds normal. No wheezes/rales/rhonchi noted. Reproducible tenderness over left 8 rib. No accessory muscle usage noted or decreased air movement noted. Abdomen: Soft and nontender. Bowel sounds normal in all 4 quadrants. No distention noted. No organomegaly noted. No visible injury noted. Back: No CVA tenderness. Full range of motion noted. Skin: Skin warm and dry. Normal skin color. Normal skin turgor. No rashes/lesions/lacerations noted. Extremities: No lower extremity edema. Extremities exhibit normal range of motion. Extremities nontender. Neuro: Oriented X 3. Cranial nerve exam: II-XII are grossly intact No motor deficit. No sensory deficit. Reflexes normal. Course Course Course Narrative: Patient complains of feeling dizzy with some chest pain for the last several days, pain lasts for 5 minutes sometimes longer and then goes away, not related to exertion, no syncope no shortness of breath Labs chest ray EKG ordered Patient is well-appearing no chest pain at this moment, she does have a history of a rib fracture on the left side 1 week ago, but she says the new chest pain with dizziness lasting 5 minutes at a time is very different from the ongoing pain from the rib fracture different location different feeling This is rapid medical exam done in triage pending full evaluation by ER provider Reevaluation(s) Reevaluation #1: Left 8th rib fracture, no pneumothorax, patient was instructed to do the deep breathing exercising. Will discharge the patient on oxycodone to help with the pain. Time: 14:22 Medical Decision Making Differential Diagnosis Differential Diagnoses: The differential diagnosis associated with the presentation includes (Chest wall pain, rib fracture, pneumothorax, pleural effusion, ACS, electrolyte abnormality, severe anemia.) Admission/Observation Consideration of admission/observation: Escalation of care including admission/observation considered Lab Data MDM Lab Attestation statement: I reviewed the patient's lab results. 06/27/23 12:14 06/27/23 12:14 Labs: Lab Results 06/27/23 Range/Units 12:14 WBC 6.6 (4.8-10.8) X10*3/uL RBC 4.59 (4.20-5.50) X10*6/uL Hgb 13.4 (12.0-16.0) g/dl Hct 41.8 (37.0-47.0) % MCV 91.1 (80.0-98.0) fL MCH 29.2 (27.0-33.0) pg MCHC 32.1 (31.0-35.0) g/dl RDW 12.7 (11.0-16.0) % Plt Count 274 (160-400) X10*3/uL MPV 10.2 (9.4-12.3) fL Immature Gran % (Auto) 0.3 (0.0-0.4) % Neut % (Auto) 61.4 (45-73) % Lymph % (Auto) 28.5 (20-40) % [place] % (Auto) 5.3 (2-11) % Eos % (Auto) 3.6 (0-4) % Baso % (Auto) 0.9 (0-2) % Lymph # (Auto) 1.9 (1.2-4.9) X10*3/uL [place] # (Auto) 0.4 (0.1-1.2) X10*3/uL Eos # (Auto) 0.2 (0.0-0.4) X10*3/uL Baso # (Auto) 0.1 (0.0-0.2) X10*3/uL Abs Immat Gran (auto) 0.02 (0.00-0.03) X10*3/uL Absolute Neuts (auto) 4.1 (2.0-8.3) x10*3/uL Absolute Nucleated RBC 0.000 (0.0-0.012) X10*3/uL Nucleated RBC % (auto) 0.0 (0.0-0.2) /100WBC PT 11.8 (11.1-13.3) SEC INR 1.0 (0.9-1.1) Sodium 142 (135-145) mmol/L Potassium 4.1 (3.3-5.1) mmol/L Chloride 107 (96-108) mmol/L Carbon Dioxide 27 (22-29) mmol/L Anion Gap 12 (12-20) BUN 11 (9-16) mg/dL Creatinine 0.79 (0.5-1.4) mg/dL Estim Creat Clear Calc 63.6 Estimated GFR > 60 Random Glucose 100 (60-115) mg/dL Calcium 10.7 H D (8.4-10.2) mg/dL Troponin I High Sens < 2.7 (<3.5-17.0) ng/L Independent Interpretation I performed an independent interpretation of an: Plain X-Ray (Chest: Left 8th rib fracture.) Radiology Impression Discussion of test interpretation with radiology: I have reviewed the radiologist's reading. Discharge Plan Discharge Clinical Impression: Fracture of rib Patient Disposition: Home, Self-Care Instructions: Rib Fracture (ED) Additional Instructions: Do breathing exercises as we discussed at least 10 times every 3 hours take the prescribed pain medication 30 minutes before you start to exercise to help alleviate the pain. Prescriptions: New oxycodone 5 mg tablet 5 mg PO Q8H PRN (Reason: pain) Qty: 20 0RF Rx Instructions: Partial Fill upon patient request. No Action benzonatate 100 mg capsule 100 mg PO BID PRN (Reason: cough) Qty: 20 0RF Referrals: Laron Will NP [Primary Care Provider] -
--- NOTE | 2023-06-27 11:52 | ECG_ITS ---
Test Reason : CHEST PAIN Blood Pressure : / mmHG Vent. Rate : 091 BPM Atrial Rate : 091 BPM P-R Int : 140 ms QRS Dur : 108 ms QT Int : 370 ms P-R-T Axes : 038 -11 019 degrees QTc Int : 455 ms Normal sinus rhythm Incomplete right bundle branch block Septal infarct , age undetermined Abnormal ECG When compared with ECG of 27-OCT-2021 08:17, Incomplete right bundle branch block is now Present Referred By: Fabrizio Hunt Electronically Signed By:Magen Scott
[2023-06-27 12:39] LABS: MANUAL DIFF FLAG NO
[2023-06-27 12:46] LABS: Prothrombin Time 11.8 SEC (11.1-13.3)
[2023-06-27 12:47] LABS: Basophils Absolute Auto 0.1 X10*3/uL (0.0-0.2); Basophils Percent Auto 0.9 % (0-2); Eosinophils Absolute Auto 0.2 X10*3/uL (0.0-0.4); Eosinophils Percent Auto 3.6 % (0-4); Hematocrit 41.8 % (37.0-47.0); Hemoglobin 13.4 g/dl (12.0-16.0); Imm Gran Abs Auto 0.02 X10*3/uL (0.00-0.03); Imm Gran Pct Auto 0.3 % (0.0-0.4); Lymphocytes Absolute Auto 1.9 X10*3/uL (1.2-4.9); Lymphocytes Percent Auto 28.5 % (20-40); Mean Corpuscular HGB Conc 32.1 g/dl (31.0-35.0); Mean Corpuscular Hemoglobin 29.2 pg (27.0-33.0); Mean Corpuscular Volume 91.1 fL (80.0-98.0); Mean Platelet Volume 10.2 fL (9.4-12.3); Monocytes Absolute Auto 0.4 X10*3/uL (0.1-1.2); Monocytes Percent Auto 5.3 % (2-11); Neutrophils Absolute Auto 4.1 x10*3/uL (2.0-8.3); Neutrophils Percent Auto 61.4 % (45-73); Platelet Count 274 X10*3/uL (160-400); Red Blood Count 4.59 X10*6/uL (4.20-5.50); Red Cell Distribution Width 12.7 % (11.0-16.0); White Blood Count 6.6 X10*3/uL (4.8-10.8)
--- NOTE | 2023-06-27 13:00 | PC.NURSE ---
Patient ambulatory to radiology for Xrays with a steady gait.
[2023-06-27 13:16] LABS: Anion Gap 12 (12-20); Blood Urea Nitrogen 11 mg/dL (9-16); Calcium 10.7 mg/dL (8.4-10.2); Carbon Dioxide 27 mmol/L (22-29); Chloride 107 mmol/L (96-108); Creatinine Clr Calc Pharmacy 63.6; Estimated Glomerular Filt Rate > 60; Glucose Random 100 mg/dL (60-115); Potassium 4.1 mmol/L (3.3-5.1); Sodium 142 mmol/L (135-145); Troponin-I High Sensitivity < 2.7 ng/L (<3.5-17.0)
[2023-06-27 15:06] VITALS: BP 115/56; PULSE 74; RESP 17; O2SAT 97
--- NOTE | 2023-06-27 15:25 | PC.NURSE ---
assumed care of pt at 1515. pt awaiting discharge instructions to be ready. will call for sustainability purchasing agent when available and to give incentive spirometer instructions. pt change into own clothes ready to go home.
== END 2023-06-27 15:52 | disposition home or self-care (01) ==
PROVIDERS: Physician Assistant Medical; Emergency Provider Emergency Medicine; PCP Nurse Practitioner Family
DX: R07.81 Pleurodynia (principal); S22.32XD Fracture of one rib, left side, subsequent encounter for fracture with routine healing; W01.0XXD Fall on same level from slipping, tripping and stumbling without subsequent striking against object, subsequent encounter
CPT/HCPCS: 36415; 71046; 80048; 84484; 85025; 85610; 93005; 99283; 99284

== ENCOUNTER → 2023-06-27 11:52 | Outpatient (BNV) | payer OTHER, SELFPAY | PROVIDERS: Emergency Provider Emergency Medicine; PCP Nurse Practitioner Family; Visit Provider Internal Medicine Cardiovascular Disease | DX: R94.31 Abnormal electrocardiogram [ECG] [EKG] (principal); R07.9 Chest pain, unspecified | CPT/HCPCS: 93010 ==

== ENCOUNTER 2023-08-06 00:08 | Emergency (ER) | payer OTHER, SELFPAY ==
--- NOTE | ~2023-08-06 | CT_ITS ---
EXAMINATION: CT ABDOMEN AND PELVIS WITHOUT CONTRAST CLINICAL INFORMATION: Left flank pain. COMPARISON: Correlation made with CT of the chest performed 06/21/2023. TECHNIQUE: Multidetector volumetric imaging was performed from the superior aspect of the liver through the pubic symphysis. Sagittal and coronal reformatted images were obtained on the technologist's workstation. This CT examination was performed using dose optimization techniques as appropriate, variously including the following: *Automated exposure control *Adjustment of mA and/or kV according to patient size (this includes techniques or standardized protocols for targeted exams where dose is matched to indication/reason for exam; i.e. extremities or head) *Use of iterative reconstruction technique DLP: 424 mGy-cm FINDINGS: LUNG BASES: The visualized lung bases are unremarkable. LIVER, GALLBLADDER, AND BILIARY TREE: There is a 1.3 cm hypodensity inferior right lobe the liver likely a small cyst. There is also a nonspecific 8 mm hypodensity right lobe the liver which was seen on prior CT and is stable. There is no intrahepatic biliary duct dilatation. The gallbladder is unremarkable with no evidence of radiopaque gallstones, gallbladder wall thickening, or obvious pericholecystic inflammatory changes. PANCREAS: Unremarkable. SPLEEN: Unremarkable. ADRENAL GLANDS: Unremarkable. KIDNEYS AND URETERS: The kidneys are normal in size and location. There is a 2.5 mm calculus lower pole left kidney as well as a 2.5 mm calculus mid to upper pole left kidney. There is a 2.4 cm parapelvic cyst midpole right kidney and a 1.4 cm cyst to lower pole left kidney. There is a 1.6 cm cyst mid to upper pole left kidney. There is no hydronephrosis. BLADDER: Unremarkable. GASTROINTESTINAL TRACT: There is retained stool. There are scattered diverticula of the descending colon without diverticulitis. ABDOMINAL WALL: A midline abdominal hernia repair mesh is noted in place. LYMPH NODES: Normal. VASCULAR: There is atherosclerotic plaque of the abdominal aorta and proximal branches. PELVIC VISCERA: Unremarkable. OSSEOUS STRUCTURES: Unremarkable. CT/CT abdomen pelvis wo IV con IMPRESSION: Small nonobstructing left renal stones. Bilateral renal cysts. Diverticulosis of the descending colon and retained stool in the colon. No acute intra-abdominal process seen. Fleischner guidelines were followed.
[2023-08-06 00:29] VITALS: BP 144/88; PULSE 95; O2SAT 99
--- NOTE | 2023-08-06 00:52 | ED.ABDPAIN ---
HPI - Abdominal Pain General Chief Complaint: Abdominal Pain Stated Complaint: ABDOMINAL PAIN Time Seen by Provider: 08/06/23 00:49 Source: patient Mode of arrival: ambulatory Limitations: no limitations History of Present Illness HPI narrative: Patient with history of kidney stone complaining of pain and left flank area for last 2 weeks patient does have history of pain in the same area 2 years ago had lithotripsy at that time does have slight nausea no vomiting no hematuria no dysuria does feel pain in suprapubic area and discomfort no blood in the stool Related Data Previous Rx's Medication Instructions Recorded benzonatate 100 mg capsule 100 mg PO BID PRN cough #20 caps 06/18/21 oxycodone 5 mg tablet 5 mg PO Q8H PRN pain #20 tabs 06/27/23 tramadol 50 mg tablet 50 mg PO Q6H PRN pain #20 tabs 08/06/23 Allergies Allergy/AdvReac Type Severity Reaction Status Date / Time No Known Allergies Allergy Verified 08/06/23 01:02 Review of Systems Review of Systems Yes all other systems are reviewed and are negative PMFSH Past Medical History Onset Date is defined in the Problem List Problems that require an onset date and time if occurred within 24 hrs of arrival to the ED Aortic Dissection and Rupture; Neurologic impairment; Cardiopulmonary Arrest; Endotracheal Intubation; Insertion or Replacement of Mechanical Circulatory Assist Device Medical History (Updated 08/06/23 @ 04:38 by Delma Pisano) Kidney stone Social History Social History Alcohol intake: never Smoked in Last 30 Days: No Use of substances other than those prescribed or required for medical reasons: No Advance Directives: No Advance Directives Information Provided: Yes Patient : No Physical Exam ED Vital Signs: Vital Signs - 24 hr 08/06/23 00:59 08/06/23 01:09 08/06/23 04:06 Temperature 97.6 F 98.1 F 97.6 F Pulse Rate 93 85 68 Respiratory Rate 18 20 14 Blood Pressure 108/43 L 115/40 L 111/34 L Pulse Oximetry 96 97 97 Oxygen Delivery Method Room Air Room Air Room Air BMI result Body Mass Index 22.6 Appearance: Alert. Oriented X3. No acute distress. Eyes: No pallor or icterus ENT: Pharynx normal. Oral Mucosa moist Neck: Normal inspection. Neck supple. CVS: Normal heart rate and rhythm. Pulses normal. Respiratory: No respiratory distress. Equal air entry bilateral, no wheezing/rales/rhonchi Abdomen: Soft mild discomfort suprapubic area. Bowel sounds are present, no mass palpable, left CVA tenderness Skin: Skin warm and dry. Normal skin color. Normal skin turgor. Extremities: No lower extremity edema. No calf tenderness Neuro: Oriented X 3. Medical Decision Making Differential Diagnosis Differential Diagnoses: The differential diagnosis associated with the presentation includes Patient with left flank pain and lower abdominal pain CT scan showed nonobstructive kidney stone and diverticulosis labs are stable urine negative for UTI will discharge patient home on pain management, likely patient has passed the stone Lab Data MDM Lab Attestation statement: I reviewed the patient's lab results. 08/06/23 01:40 08/06/23 01:40 Labs: Lab Results 08/06/23 08/06/23 Range/Units 01:27 01:40 WBC 5.6 (4.8-10.8) X10*3/uL RBC 4.37 (4.20-5.50) X10*6/uL Hgb 12.7 (12.0-16.0) g/dl Hct 39.1 (37.0-47.0) % MCV 89.5 (80.0-98.0) fL MCH 29.1 (27.0-33.0) pg MCHC 32.5 (31.0-35.0) g/dl RDW 12.2 (11.0-16.0) % Plt Count 284 (160-400) X10*3/uL MPV 9.3 L (9.4-12.3) fL Immature Gran % (Auto) 0.2 (0.0-0.4) % Neut % (Auto) 40.0 L (45-73) % Lymph % (Auto) 44.4 H (20-40) % [place] % (Auto) 8.6 (2-11) % Eos % (Auto) 6.1 H (0-4) % Baso % (Auto) 0.7 (0-2) % Lymph # (Auto) 2.5 (1.2-4.9) X10*3/uL [place] # (Auto) 0.5 (0.1-1.2) X10*3/uL Eos # (Auto) 0.3 (0.0-0.4) X10*3/uL Baso # (Auto) 0.0 (0.0-0.2) X10*3/uL Abs Immat Gran (auto) 0.01 (0.00-0.03) X10*3/uL Absolute Neuts (auto) 2.3 (2.0-8.3) x10*3/uL Absolute Nucleated RBC 0.000 (0.0-0.012) X10*3/uL Nucleated RBC % (auto) 0.0 (0.0-0.2) /100WBC Sodium 142 (135-145) mmol/L Potassium 3.7 (3.3-5.1) mmol/L Chloride 109 H (96-108) mmol/L Carbon Dioxide 27 (22-29) mmol/L Anion Gap 10 L (12-20) BUN 10 (9-16) mg/dL Creatinine 0.73 (0.5-1.4) mg/dL Estim Creat Clear Calc 69.4 Estimated GFR > 60 Random Glucose 91 (60-115) mg/dL Calcium 9.8 D (8.4-10.2) mg/dL Total Bilirubin 0.2 (0.0-1.0) mg/dL Direct Bilirubin < 0.2 (0.0-0.5) mg/dL AST 26 (5-31) U/L ALT 25 (0-31) U/L Alkaline Phosphatase 108 (39-117) U/L Total Protein 7.3 (6.5-8.0) g/dL Albumin 4.3 (3.5-5.0) g/dL Lipase 52 (8-78) U/L Urine Color Yellow Urine Appearance Cloudy Urine pH 5.5 (5.0-9.0) Ur Specific [place] 1.020 (1.005-1.025) Urine Protein Negative (Neg-Trace) mg/dL Urine Glucose (UA) Negative (Negative) mg/dL Urine Ketones Negative (Negative) mg/dL Urine Blood Large (3+) H (Negative) Urine Nitrite Negative (Negative) Ur Leukocyte Esterase Small (1+) H (Negative) Urine RBC >20 H (0-2) /HPF Urine WBC 6-10 H (0-5) /HPF Ur Squamous Epith Cells 0-2 (0-2) /HPF Urine Bacteria None Seen (None Seen) Hyaline Casts 0-2 (0-2) /LPF Independent Interpretation I performed an independent interpretation of an: CT Scan Radiology Impression Discussion of test interpretation with radiology: I have reviewed the radiologist's reading. Radiologist Impression: CT/CT abdomen pelvis wo IV con IMPRESSION: Small nonobstructing left renal stones. Bilateral renal cysts. Diverticulosis of the descending colon and retained stool in the colon. No acute intra-abdominal process seen. Fleischner guidelines were followed. Medications Administered Discontinued Medications Generic Name Dose Route Start Last Admin Trade Name Freq PRN Reason Stop Dose Admin Sodium Chloride 1,000 mls @ 999 mls/hr 08/06/23 01:21 08/06/23 04:15 Ns IV 08/06/23 02:21 Infused .Q1H1M ONE Infusion Morphine Sulfate 4 mg 08/06/23 01:21 08/06/23 01:44 Morphine Sulfate 4 Mg/Ml Cartridge IVPUSH 08/06/23 01:22 4 mg ONCE ONE Administration Protocol Ondansetron HCl 4 mg 08/06/23 01:21 08/06/23 01:44 Ondansetron Hcl 4 Mg/2 Ml Vial IVPUSH 08/06/23 01:22 4 mg ONCE ONE Administration Oxycodone HCl 5 mg 08/06/23 04:28 08/06/23 04:33 Oxycodone Hcl Immed Release 5 Mg Tablet PO 08/06/23 04:29 5 mg ONCE ONE Administration Discharge Plan Discharge Clinical Impression: Abdominal pain Patient Disposition: Home, Self-Care Instructions: Kidney Stones (ED) Additional Instructions: Likely you have passed kidney stone Take pain medication as prescribed Probablemente hayas pasado c?lculos renales. Blessing los analg?sicos seg?n lo recetado. Prescriptions: New tramadol 50 mg tablet 50 mg PO Q6H PRN (Reason: pain) Qty: 20 0RF No Action benzonatate 100 mg capsule 100 mg PO BID PRN (Reason: cough) Qty: 20 0RF oxycodone 5 mg tablet 5 mg PO Q8H PRN (Reason: pain) Qty: 20 0RF Rx Instructions: Partial Fill upon patient request. Interventions: ED Discharge Assessment Last Done: 08/06/23 04:33 Discharge Date/Time: 08/06/23 04:38
[2023-08-06 00:59] VITALS: BP 108/43; PULSE 93; RESP 18; TEMP 36.4; O2SAT 96; BMI 22.6
[2023-08-06 01:09] VITALS: BP 115/40; PULSE 85; RESP 20; TEMP 36.7; O2SAT 97
[2023-08-06] MEDS: 0.9 % Sodium Chloride 1,000 ML 999 ML IV (01:41)
[2023-08-06 01:44] LABS: Basophils Percent Auto 0.7 % (0-2); Eosinophils Absolute Auto 0.3 X10*3/uL (0.0-0.4); Eosinophils Percent Auto 6.1 % (0-4); Hematocrit 39.1 % (37.0-47.0); Hemoglobin 12.7 g/dl (12.0-16.0); Imm Gran Abs Auto 0.01 X10*3/uL (0.00-0.03); Imm Gran Pct Auto 0.2 % (0.0-0.4); Lymphocytes Absolute Auto 2.5 X10*3/uL (1.2-4.9); Lymphocytes Percent Auto 44.4 % (20-40); MANUAL DIFF FLAG NO; Mean Corpuscular HGB Conc 32.5 g/dl (31.0-35.0); Mean Corpuscular Hemoglobin 29.1 pg (27.0-33.0); Mean Corpuscular Volume 89.5 fL (80.0-98.0); Mean Platelet Volume 9.3 fL (9.4-12.3); Monocytes Absolute Auto 0.5 X10*3/uL (0.1-1.2); Monocytes Percent Auto 8.6 % (2-11); Neutrophils Absolute Auto 2.3 x10*3/uL (2.0-8.3); Platelet Count 284 X10*3/uL (160-400); Red Blood Count 4.37 X10*6/uL (4.20-5.50); Red Cell Distribution Width 12.2 % (11.0-16.0); White Blood Count 5.6 X10*3/uL (4.8-10.8)
[2023-08-06] MEDS: Morphine Sulfate 4 MG/ML CARTRIDGE IVPUSH (01:44)
[2023-08-06] MEDS: ondansetron HCL 4 MG/2 ML VIAL IVPUSH (01:44)
[2023-08-06 01:45] LABS: Appearance Urine Cloudy; Color Urine Yellow; Glucose Urine UA Negative (Negative); Leukocyte Esterase Urine Small (1+) (Negative); Nitrite Urine Negative (Negative); PH 5.5 (5.0-9.0); UMIC TRIGGER UACC YES; Urine Blood Large (3+) (Negative); Urine Ketones Negative (Negative); Urine Protein Negative (Neg-Trace)
[2023-08-06 01:50] LABS: Bacteria Urine None Seen (None Seen); Hyaline Casts Urine 0-2 /LPF (0-2); RBC Urine >20 /HPF (0-2); Squamous Epithelial Cell Urine 0-2 /HPF (0-2); UACC Culture Trigger YES
[2023-08-06 02:05] LABS: Alanine Aminotransferase 25 U/L (0-31); Albumin Level 4.3 g/dL (3.5-5.0); Alkaline Phosphatase 108 U/L (39-117); Anion Gap 10 (12-20); Aspartate Amino Transferase 26 U/L (5-31); Bilirubin Direct < 0.2 mg/dL (0.0-0.5); Bilirubin Total 0.2 mg/dL (0.0-1.0); Blood Urea Nitrogen 10 mg/dL (9-16); Calcium 9.8 mg/dL (8.4-10.2); Carbon Dioxide 27 mmol/L (22-29); Chloride 109 mmol/L (96-108); Creatinine Clr Calc Pharmacy 69.4; Estimated Glomerular Filt Rate > 60; Glucose Random 91 mg/dL (60-115); Lipase 52 U/L (8-78); Potassium 3.7 mmol/L (3.3-5.1); Sodium 142 mmol/L (135-145); Total Protein 7.3 g/dL (6.5-8.0)
[2023-08-06 04:06] VITALS: BP 111/34; PULSE 68; RESP 14; TEMP 36.4; O2SAT 97
[2023-08-06] MEDS: oxyCODONE HCl Immed Release 5 MG TABLET PO (04:33)
== END 2023-08-06 04:38 | disposition home or self-care (01) ==
PROVIDERS: Emergency Provider Internal Medicine; PCP Nurse Practitioner Family
DX: R10.30 Lower abdominal pain, unspecified (principal)
CPT/HCPCS: 36415; 74176; 80048; 80076; 81001; 83690; 85025; 87086; 96361; 96374; 96375; 99284; J2270; J2405

== ENCOUNTER 2025-01-26 21:53 | Emergency (ER) | payer OTHER, SELFPAY ==
--- NOTE | ~2025-01-26 | CT_ITS ---
CLINICAL HISTORY: hx of mesh for prolapse, abd pain CT abdomen and pelvis with contrast Comparison: CT/SR - CT ABDOMEN PELVIS WO IV CON - 08/06/23 01:27 EST Findings: Diffuse esophageal mural thickening, nonspecific. Atelectasis. Hepatomegaly with steatosis Scattered subcentimeter low-density lesions throughout the liver, likely cysts or hemangiomas, too small to characterize. Bilateral hypodense renal cysts. Nonobstructive subcentimeter left renal calculi measuring no more than 4 mm. Bilateral perinephric stranding, nonspecific. No bowel obstruction, pneumoperitoneum, or pneumatosis. Postsurgical abdominal wall changes with anchor clips. Scattered colonic diverticulosis without diverticulitis or colitis. Fundal uterine fibroid heterogeneous ill-defined focus in the endocervical region, not well evaluated, underlying lesion can not be excluded. Recommend pelvic MRI and gynecologic consult. Osteopenia with diffuse multilevel spondylosis. Diffuse atheromatous plaque disease throughout the aorta and branch vessels, without aneurysmal dilatation. IMPRESSION: Nonobstructive subcentimeter left renal calculi measuring no more than 4 mm. This document has been electronically signed by: Gilberto Rice MD on 01/27/2025 00:43:55
[2025-01-26 21:57] VITALS: BP 117/53; PULSE 86; RESP 16; TEMP 36.4; O2SAT 95
[2025-01-26 22:29] LABS: MANUAL DIFF FLAG NO
--- NOTE | 2025-01-26 22:29 | ED.FEMALEGU ---
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 The patient reports she had a bladder mesh placement for prolapse done at [facility] February of 2024. Patient states she began to feel abdominal pain and vaginal fullness and discomfort with palpable mass November of 2024. Patient reports that she has to insert fingers inside of her vagina to manipulate the mass in order to empty her bladder completely. Patient reports pain is better when she is lying down, and exacerbated when standing up or sitting down to urinate or move her bowels. She states she has a follow up with her surgeon on 02/04 of this month. Patient denies chest pain, shortness of breath, nausea, vomiting, hematuria, vaginal discharge, vaginal bleeding, fever, chills Related Data Previous Rx's ?Medication ?Instructions ?Recorded benzonatate 100 mg capsule 100 mg PO BID PRN cough #20 caps 06/18/21 oxycodone 5 mg tablet 5 mg PO Q8H PRN pain #20 tabs 06/27/23 tramadol 50 mg tablet 50 mg PO Q6H PRN pain #20 tabs 08/06/23 cefuroxime axetil 250 mg tablet 250 mg PO BID 7 days #14 tabs 01/27/25 Allergies Allergy/AdvReac Type Severity Reaction Status Date / Time No Known Allergies Allergy Verified 01/26/25 22:15 Review of Systems Review of Systems: CONST: Negative for fever, body aches and chills. HENT: Negative for neck pain/stiffness, headache, congestion, sore throat, swelling. EYES: Negative for discharge/pain or vision changes. RESP: Negative for cough/hemoptysis and shortness of breath. CV: Negative chest pain, difficulty breathing, palpitations. ABD: Negative pain, nausea, vomiting. POS lower abdominal pain : Negative increase frequency, dysuria, blood in urine or stool. POS vaginal pain/fullness MUSC: Negative for muscle aches, edema. SKIN: Negative rash, lesions/sores. NEURO: Negative headache, dizziness, weakness. Yes all other systems are reviewed and are negative PMFSH Past Medical History Attestation statement: The following information was validated with the patient. Source: old records reviewed and nursing notes reviewed Medical History (Updated 01/27/25 @ 02:17 by Margoth Mckay PA-C) Kidney stone Social History Social History Alcohol intake: never Smoked in Last 30 Days: No Use of substances other than those prescribed or required for medical reasons: No Advance Directives: No Advance Directives Information Provided: No Physical Exam Vital Signs: Vital Signs: Last Vital Signs Temp 97.7 F 01/27/25 00:20 Pulse 64 01/27/25 00:20 Resp 18 01/27/25 00:20 BP 110/52 L 01/27/25 00:20 Pulse Ox 94 01/27/25 00:20 O2 Del Method Room Air 01/27/25 00:20 BMI result Body Mass Index 30.0 GENERAL APPEARANCE: ?AxOx3, no acute distress. HEENT: ?NC, AT. MMM. EOMI, clear conjunctiva, oropharynx clear. HEART:? Normal rate and regular rhythm, normal S1/S1, no m/r/g LUNGS:? CTAB, moving air well. No crackles or wheezes are heard. ABDOMEN: ?Soft, nondistended, no rigidity, negative Meeks's sign, no rebound tenderness, TTP LLQ, suprapubic region. Good bowel sounds heard : No lesions on external genitalia, no protrusion of tissue from vagina. Speculum exam reveals laxity of vaginal barbour, no blood in vaginal vault or from cervial os. BACK: L side CVAT, no obvious deformity. EXTREMITIES: ?Without cyanosis, clubbing or edema. NEUROLOGICAL: ?Grossly nonfocal. Alert and oriented, moving all 4 extremities. Observed to ambulate with normal gait. Skin: ?Warm and dry without any rash. Medications Administered Discontinued Medications Generic Name Dose Route Start Last Admin Trade Name Freq PRN Reason Stop Dose Admin Iohexol 85 ml 01/26/25 23:39 01/26/25 23:40 Iohexol 350 Mg/Ml 100 Ml Infus..Btl IV 01/26/25 23:40 85 ml ONCE ONE Administration Medical Decision Making Medical Decision Making [facility] Narrative: 60-year-old female with medical history of renal calculi presents to the ED due to 3 months of abdominal and vaginal pain. The patient reports she had a bladder mesh placement for prolapse done at [facility] February of 2024. Patient states she began to feel abdominal pain and vaginal fullness and discomfort with palpable mass November of 2024. Patient reports that she has to insert fingers inside of her vagina to manipulate the mass in order to empty her bladder completely, and feels as if there is still urine present after urinating. Patient reports pain is better when she is lying down, and exacerbated when standing up or sitting down to urinate or move her bowels. She states she has a follow up with her surgeon on 02/04 of this month. VSS, no acute distress, nontoxic appearing. On physical exam patient with mild tenderness to palpation over the left lower quadrant, suprapubic region, and left-sided CVA tenderness. Labs without leukocytosis, all labs WNL. Due to patient with bladder mesh surgery, abdominal pain, and CVA tenderness will evaluate with CT abdomen and pelvis for acute abdomen. Will do post void bladder scan to check for retained urine. Course 23:52- Bladder scan does not show retained urine, bladder empty after urination. Awaiting CT scan. 01:46- CT scan reveals hepatomegaly with steatosis, bilateral hypodense renal cysts, nonobstructive left renal calculi less than or equal to 4 mm, bilateral perinephric stranding, diverticulosis without inflammation or colitis, a fundal uterine fibroid that is heterogeneous with ill-defined focus in the endocervical region, not well evaluated underlying lesion can not be excluded recommending pelvic MRI and gynecologic consult. I performed a vaginal speculum exam and saw some laxity of the vaginal barbour but did not visualize tissue protruding from the vagina, no blood in vaginal vault or coming from cervical os. On bimanual exam patient had mild tenderness when palpating uterus. Patient does not have clerk to justice, will place referral for [facility] clerk to justice. Differential Diagnosis Differential Diagnoses: The differential diagnosis associated with the presentation includes Bladder mass Bladder prolapse Diverticulosis Diverticulitis Admission/Observation Consideration of admission/observation: Escalation of care including admission/observation considered Lab Data [facility] Lab Attestation statement: I reviewed the patient's lab results. 01/26/25 22:25 01/26/25 22:24 Labs: Lab Results 01/26/25 01/26/25 01/26/25 Range/Units 22:24 22:25 22:52 WBC 7.0 (4.8-10.8) X10*3/uL RBC 4.52 (4.20-5.50) X10*6/uL Hgb 13.4 (12.0-16.0) g/dl Hct 39.6 (37.0-47.0) % MCV 87.6 (80.0-98.0) fL MCH 29.6 (27.0-33.0) pg MCHC 33.8 (31.0-35.0) g/dl RDW 12.9 (11.0-16.0) % Plt Count 274 (160-400) X10*3/uL MPV 9.5 (9.4-12.3) fL Immature Gran % (Auto) 0.1 (0.0-0.4) % Neut % (Auto) 46.4 (45-73) % Lymph % (Auto) 38.9 (20-40) % [place] % (Auto) 7.8 (2-11) % Eos % (Auto) 5.8 H (0-4) % Baso % (Auto) 1.0 (0-2) % Lymph # (Auto) 2.7 (1.2-4.9) X10*3/uL [place] # (Auto) 0.6 (0.1-1.2) X10*3/uL Eos # (Auto) 0.4 (0.0-0.4) X10*3/uL Baso # (Auto) 0.1 (0.0-0.2) X10*3/uL Abs Immat Gran (auto) 0.01 (0.00-0.03) X10*3/uL Absolute Neuts (auto) 3.2 (2.0-8.3) x10*3/uL Absolute Nucleated RBC 0.000 (0.0-0.012) X10*3/uL Nucleated RBC % (auto) 0.0 (0.0-0.2) /100WBC Sodium 141 (135-145) mmol/L Potassium 3.8 (3.3-5.1) mmol/L Chloride 109 H (96-108) mmol/L Carbon Dioxide 22 (22-29) mmol/L Anion Gap 14 (12-20) BUN 14 (9-16) mg/dL Creatinine 0.67 (0.5-1.4) mg/dL Estim Creat Clear Calc 81.0 Estimated GFR > 60 Random Glucose 97 (60-115) mg/dL Calcium 10.2 (8.4-10.2) mg/dL Total Bilirubin 0.2 (0.0-1.0) mg/dL AST 24 (5-31) U/L ALT 30 (0-31) U/L Alkaline Phosphatase 105 (39-117) U/L Total Protein 7.4 (6.5-8.0) g/dL Albumin 4.5 (3.5-5.0) g/dL Urine Color Yellow Urine Appearance Cloudy Urine pH 5.5 (5.0-9.0) Ur Specific [place] >= 1.030 H (1.005-1.025) Urine Protein 30 (1+) H (Neg-Trace) mg/dL Urine Glucose (UA) Negative (Negative) mg/dL Urine Ketones Trace (Negative) mg/dL Urine Blood Negative (Negative) Urine Nitrite Negative (Negative) Ur Leukocyte Esterase Moderate (2+) H (Negative) Urine RBC 0-2 (0-2) /HPF Urine WBC >50 H (0-5) /HPF Ur Squamous Epith Cells >20 (0-2) /HPF Calcium Oxalate Crystal Present Urine Bacteria 4+ (None Seen) Hyaline Casts 3-5 (0-2) /LPF Independent Interpretation I performed an independent interpretation of an: CT Scan Radiology Impression Discussion of test interpretation with radiology: I have reviewed the radiologist's reading. Radiologist Impression: CT abdomen/pelvis Findings: Diffuse esophageal mural thickening, nonspecific. Atelectasis. Hepatomegaly with steatosis Scattered subcentimeter low-density lesions throughout the liver, likely cysts or hemangiomas, too small to characterize. Bilateral hypodense renal cysts. Nonobstructive subcentimeter left renal calculi measuring no more than 4 mm. Bilateral perinephric stranding, nonspecific. No bowel obstruction, pneumoperitoneum, or pneumatosis. Postsurgical abdominal wall changes with anchor clips. Scattered colonic diverticulosis without diverticulitis or colitis. Fundal uterine fibroid heterogeneous ill-defined focus in the endocervical region, not well evaluated, underlying lesion can not be excluded. Recommend pelvic MRI and gynecologic consult. Osteopenia with diffuse multilevel spondylosis. Diffuse atheromatous plaque disease throughout the aorta and branch vessels, without aneurysmal dilatation. IMPRESSION: Nonobstructive subcentimeter left renal calculi measuring no more than 4 mm. This document has been electronically signed by: Gilberto Rice MD on 01/27/2025 00:43:55 Dictated By: Gilberto Rice MD Signed By: <Electronically signed by Gilberto Rice MD in OV> 01/27/25 0045 External Record Review External record reviewed: Inpatient record, Office record and Outpatient record Discharge Plan Discharge Clinical Impression: Urinary tract infection, Vaginal pain Patient Disposition: Home, Self-Care Additional Instructions: You were evaluated in the ED today due to lower abdominal pain and vaginal fullness. Your blood work was normal. Your urine test showed that you have a urinary tract infection. You had imaging done to evaluate your abdomen and vaginal pain. CT scan revealed diverticulosis, a left-sided nonobstructing small kidney stone, and a uterine fibroid that needs further follow up with a clerk to justice. For UTI you will be prescribed an antibiotic called cefuroxime that you will take for 7 days. Please follow up with your PCP, the surgeon who performed your mesh surgery. You have a referral for clerk to justice, you need to call the office on Tuesday morning. Please return to the emergency department if you experience worsening abdominal pain, fevers over 100.4?, vaginal bleeding, vaginal discharge, or any new/worsening/concerning symptoms. Prescriptions: New cefuroxime axetil 250 mg tablet 250 mg PO BID 7 Days Qty: 14 0RF No Action benzonatate 100 mg capsule 100 mg PO BID PRN (Reason: cough) Qty: 20 0RF oxycodone 5 mg tablet 5 mg PO Q8H PRN (Reason: pain) Qty: 20 0RF Rx Instructions: Partial Fill upon patient request. tramadol 50 mg tablet 50 mg PO Q6H PRN (Reason: pain) Qty: 20 0RF Referrals: Edward Medina MD [Physician, SR. STRATEGIC SOURCING MANAGER] Referral Note: fibroid found on CT, radiologist recommends further evaluation with MRI Print Language: [place]
[2025-01-26 22:30] LABS: Hematocrit 39.6 % (37.0-47.0); Hemoglobin 13.4 g/dl (12.0-16.0); Imm Gran Abs Auto 0.01 X10*3/uL (0.00-0.03); Imm Gran Pct Auto 0.1 % (0.0-0.4); Lymphocytes Absolute Auto 2.7 X10*3/uL (1.2-4.9); Mean Corpuscular HGB Conc 33.8 g/dl (31.0-35.0); Mean Corpuscular Hemoglobin 29.6 pg (27.0-33.0); Mean Corpuscular Volume 87.6 fL (80.0-98.0); NRBC Abs Auto 0.000 X10*3/uL (0.0-0.012); NRBC Pct Auto 0.0 /100WBC (0.0-0.2); Platelet Count 274 X10*3/uL (160-400); Red Blood Count 4.52 X10*6/uL (4.20-5.50); White Blood Count 7.0 X10*3/uL (4.8-10.8)
[2025-01-26 22:45] LABS: Alanine Aminotransferase 30 U/L (0-31); Albumin Level 4.5 g/dL (3.5-5.0); Alkaline Phosphatase 105 U/L (39-117); Anion Gap 14 (12-20); Aspartate Amino Transferase 24 U/L (5-31); Blood Urea Nitrogen 14 mg/dL (9-16); Calcium 10.2 mg/dL (8.4-10.2); Carbon Dioxide 22 mmol/L (22-29); Chloride 109 mmol/L (96-108); Creatinine Clr Calc Pharmacy 81.0; Estimated Glomerular Filt Rate > 60; Potassium 3.8 mmol/L (3.3-5.1); Sodium 141 mmol/L (135-145); Total Protein 7.4 g/dL (6.5-8.0)
[2025-01-26 23:01] LABS: Appearance Urine Cloudy; Glucose Urine UA Negative (Negative); PH 5.5 (5.0-9.0); Specific Gravity - Urine >= 1.030 (1.005-1.025); UMIC TRIGGER UACC YES
[2025-01-26 23:12] LABS: UACC Culture Trigger YES
[2025-01-26] MEDS: iohexoL 350 MG/ML 100 ML INFUS..BTL 85 ML IV (23:40)
--- NOTE | 2025-01-27 00:18 | PC.NURSE ---
Pt resting comfortably on stretcher, call ruano in reach. Utilizing hospital cnc mill programmer, patient verbalized understanding of call ruano
[2025-01-27 00:20] VITALS: BP 110/52; PULSE 64; RESP 18; TEMP 36.5; O2SAT 94
[2025-01-27 02:40] VITALS: BP 114/70; PULSE 68; RESP 18; TEMP 36.5; O2SAT 96
[2025-01-27 02:52] VITALS: BP 114/70; PULSE 68; RESP 18; TEMP 36.5; O2SAT 96
== END 2025-01-27 02:54 | disposition home or self-care (01) ==
PROVIDERS: Emergency Provider Emergency Medicine; PCP Nurse Practitioner Family
DX: N39.0 Urinary tract infection, site not specified (principal); R10.2 Pelvic and perineal pain; R10.9 Unspecified abdominal pain
CPT/HCPCS: 36415; 74177; 80053; 81001; 81003; 85025; 87086; 99284; Q9967

== ENCOUNTER → 2025-01-26 23:45 | Outpatient (BNV) | payer OTHER, SELFPAY | PROVIDERS: Emergency Provider Emergency Medicine; PCP Nurse Practitioner Family; Visit Provider Radiology Diagnostic Radiology | DX: N20.0 Calculus of kidney (principal) | CPT/HCPCS: 74177 ==

== ENCOUNTER 2025-02-23 10:18 | Emergency (ER) | payer OTHER, SELFPAY ==
--- NOTE | ~2025-02-23 | CT_ITS ---
CLINICAL HISTORY: vomiting 1 mo, wt loss, lateral tenderness CT abdomen and pelvis with contrast Comparison: CT/SR - ABDOMEN ABD_PELVIS_IV_CONTRAST (ADULT) - 01/26/25 23:34 EDT Findings: CT abdomen: Lung bases are clear. No acute bony abnormality. Air-filled distention of the distal esophagus. Small bowel loops are of normal caliber. Mesh ventral hernia repair has been performed previously. Low-attenuation throughout the liver is indicative of fatty infiltration. Unchanged hepatic cysts measuring up to 2.5 cm in size. No concerning hepatic mass lesion. Main portal vein is patent. Spleen, pancreas, gallbladder, and adrenal glands are unremarkable. Unchanged 4 mm calculus within the interpolar region of the left kidney. Unchanged parapelvic cysts of both kidneys. No significant hydronephrosis. No free fluid or free air. CT pelvis: Moderate vascular calcification of the abdominal aorta and iliac arteries without aneurysmal dilation or dissection. Pessary device or estrogen delivery device is seen within the vagina. Endometrial stripe is prominent for a postmenopausal female measuring up to 1.4 cm. No focal areas of colonic wall thickening are identified. Scattered diverticuli seen throughout the colon without findings of diverticulitis. No findings of appendicitis. No free fluid or free air. IMPRESSION: 1. No findings of bowel obstruction. 2. Nonobstructing left renal calculus. 3. Fatty liver. 4. Prominence of the endometrial stripe, possibly related to hormone replacement therapy given the presence of a potential estrogen delivery device within the vagina. Clinical correlation advised. Correlation with any abnormal postmenopausal bleeding is also suggested. Pelvic ultrasound could further evaluate. This document has been electronically signed by: Jaydon Gavin MD on 02/23/2025 14:08:39
[2025-02-23 10:22] VITALS: BP 108/32; PULSE 68; RESP 14; TEMP 36.7; O2SAT 97; BMI 25.6
[2025-02-23 10:47] LABS: MANUAL DIFF FLAG NO
[2025-02-23 10:49] LABS: Hematocrit 38.6 % (37.0-47.0); Hemoglobin 12.8 g/dl (12.0-16.0); Imm Gran Abs Auto 0.02 X10*3/uL (0.00-0.03); Imm Gran Pct Auto 0.3 % (0.0-0.4); Lymphocytes Absolute Auto 1.9 X10*3/uL (1.2-4.9); Mean Corpuscular HGB Conc 33.2 g/dl (31.0-35.0); Mean Corpuscular Hemoglobin 29.7 pg (27.0-33.0); Mean Corpuscular Volume 89.6 fL (80.0-98.0); NRBC Abs Auto 0.000 X10*3/uL (0.0-0.012); NRBC Pct Auto 0.0 /100WBC (0.0-0.2); Platelet Count 251 X10*3/uL (160-400); Red Blood Count 4.31 X10*6/uL (4.20-5.50); White Blood Count 6.1 X10*3/uL (4.8-10.8)
[2025-02-23 10:58] LABS: Appearance Urine Clear; Glucose Urine UA Negative (Negative); PH 6.0 (5.0-9.0); Specific Gravity - Urine 1.020 (1.005-1.025); UMIC TRIGGER UACC YES
[2025-02-23 11:06] LABS: Alanine Aminotransferase 26 U/L (0-31); Albumin Level 4.2 g/dL (3.5-5.0); Alkaline Phosphatase 108 U/L (39-117); Anion Gap 11 (12-20); Aspartate Amino Transferase 23 U/L (5-31); Blood Urea Nitrogen 12 mg/dL (9-16); Calcium 9.1 mg/dL (8.4-10.2); Carbon Dioxide 25 mmol/L (22-29); Chloride 109 mmol/L (96-108); Creatinine Clr Calc Pharmacy 85.6; Estimated Glomerular Filt Rate > 60; Potassium 3.9 mmol/L (3.3-5.1); Sodium 141 mmol/L (135-145); Total Protein 6.8 g/dL (6.5-8.0)
[2025-02-23 11:12] LABS: UACC Culture Trigger YES
--- NOTE | 2025-02-23 11:17 | ED.GENADULT ---
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 Also complains of pain to bilateral sides of her abdomen. States that she recently saw a urologist at [facility] and was told that she had a stone within her left kidney but that this should not be what is causing her flank or back pain. She denies fevers. Denies hematochezia or melena. Reports that she has not been eating because everything she eats she vomits. States she has lost 7 lb. States at times her emesis appears bilious. Reports prior abdominal surgery for hernia repair but denies any other abdominal surgeries. Has used Zofran with little relief of nausea and vomiting. Also reports psychiatric history and states she has not taken her Klonopin since the beginning of January, was previously prescribed 1 mg TID. Has an appointment with a new therapist on the . Denies any current suicidal ideation but reports history of this in the past. Has a appointment with new PCP on the . complaint: N/V/D Onset (ago): month(s) Related Data Previous Rx's ?Medication ?Instructions ?Recorded benzonatate 100 mg capsule 100 mg PO BID PRN cough #20 caps 06/18/21 oxycodone 5 mg tablet 5 mg PO Q8H PRN pain #20 tabs 06/27/23 tramadol 50 mg tablet 50 mg PO Q6H PRN pain #20 tabs 08/06/23 cefuroxime axetil 250 mg tablet 250 mg PO BID 7 days #14 tabs 01/27/25 metoclopramide HCl 10 mg tablet 10 mg PO Q6H PRN nausea and 02/23/25 vomiting #10 tabs sucralfate 1 gram tablet 1 g PO TID #21 tabs 02/23/25 Allergies Allergy/AdvReac Type Severity Reaction Status Date / Time prednisone Allergy Unknown Verified 08/09/25 10:36 Review of Systems Review of Systems: As per HPI Yes all other systems are reviewed and are negative Constitutional: Constitutional: Reports as per HPI [facility] Past Medical History Medical History (Updated 02/23/25 @ 14:59 by Kymberly Pagan NP) Kidney stone Social History Social History Alcohol intake: unknown Advance Directives: No Advance Directives Information Provided: Yes Physical Exam ED Vital Signs: Vital Signs - 24 hr 02/23/25 10:22 Temperature 98.1 F Pulse Rate 68 Respiratory Rate 14 Blood Pressure 108/32 L Pulse Oximetry 97 Oxygen Delivery Method Room Air BMI result Body Mass Index 25.6 Vital signs have been reviewed and appear to be correct. Blood pressure normal. Heart rate normal. Respiratory rate normal. Temperature normal. Oxygen saturation normal. Const General: cooperative and no acute distress Orientation/consciousness: oriented to person, oriented to place, oriented to time and patient oriented x3 Limitations: no limitations HENMT Head: Yes normocephalic and Yes atraumatic Ears: external ears normal General nose exam: Normal external nose present Face and sinus: Yes face symmetric Mouth: oropharynx normal and moist mucous membranes Throat: Yes uvula midline Eyes Pupils: Equal, round and reactive pupils present Neck Neck: Yes normal visual inspection and Yes supple Resp Effort & Inspection: normal respiratory effort and able to speak in complete sentences Auscultation: clear to auscultation bilaterally Cardio Rate: regular rate Rhythm: regular rhythm Heart sounds: S1 normal heart sound present and S2 normal heart sound present GI Palpation (GI): Soft to palpation, Tenderness to palpation present (GI) (mild diffuse tenderness), no guarding and No Rebound tenderness present Auscultation: normoactive bowel sounds General: Yes no CVA tenderness Back/Spine/Pelvis Back: no CVA tenderness Skin General skin exam: elasticity normal and turgor normal Neuro General: oriented to person, oriented to place, oriented to time, patient oriented x3, moves all extremities, no focal motor deficits and CN's II-XI intact bilaterally Cranial nerves: Yes Equal, round and reactive pupils present Cognition (Neuro): normal cognition Extrem General: Yes full ROM, Yes no pedal edema and Yes no calf tenderness Psych Mental Status: mental status grossly normal Affect: normal affect Thought process: Normal thought process present Medications Administered Discontinued Medications Generic Name Dose Route Start Last Admin Trade Name Sachin PRN Reason Stop Dose Admin Diphenhydramine HCl 25 mg 02/23/25 11:33 02/23/25 12:02 Diphenhydramine Hcl 50 Mg/Ml Vial IVPUSH 02/23/25 11:34 25 mg ONCE ONE Administration Sodium Chloride 1,000 mls @ 999 mls/hr 02/23/25 11:45 02/23/25 12:02 Ns IV 02/23/25 12:45 999 mls/hr .Q1H1M AKIN Administration Iohexol 85 ml 02/23/25 11:52 02/23/25 11:52 Iohexol 350 Mg/Ml 100 Ml Infus..Btl IV 02/23/25 11:53 85 ml ONCE ONE Administration Ketorolac Tromethamine 15 mg 02/23/25 11:33 02/23/25 12:02 Ketorolac Tromethamine 15 Mg/Ml Vial IVPUSH 02/23/25 11:34 15 mg ONCE ONE Administration Metoclopramide HCl 10 mg 02/23/25 11:33 02/23/25 12:02 Metoclopramide Hcl 10 Mg/2 Ml Vial IVPUSH 02/23/25 11:34 10 mg ONCE ONE Administration Medical Decision Making Medical Decision Making MDM Narrative: Patient is a 60-year-old [place]-speaking female who recently came here from [place] presenting to the emergency department with complaint of nausea, vomiting, and diarrhea for the past month. Also complains of pain to bilateral sides of her abdomen. On exam patient is awake, A+Ox3, VS WNL, afebrile, normal neurological exam without focal deficits, physical exam findings as above. Given reported symptoms and physical exam findings, initial differential includes but is not limited to . Labs notable for no leukocytosis, no anemia, no significant electrolyte abnormalities, no evidence of MIRIAM. Urinalysis is without evidence of infection. CT abdomen pelvis notable for no evidence of bowel obstruction, no obstructing calculi, hepatic steatosis, prominent endometrial stripe. My interpretation is in agreement with the radiologist's interpretation. 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 Discussed referral to GI, patient now stating that she has an endoscopy scheduled on the at [facility]. Will send prescription for Reglan and sucralfate, discussed with patient that she can not take the Reglan and combination with Zofran. Return precautions discussed. Patient verbalized understanding of and agreement with plan. Differential Diagnosis Differential Diagnoses: The differential diagnosis associated with the presentation includes As per [facility] Admission/Observation Consideration of admission/observation: Escalation of care including admission/observation considered Patient would have been admitted to the hospital had their clinical presentation warranted hospital admission. Lab Data [facility] Lab Attestation statement: I reviewed the patient's lab results. as per [facility] 02/23/25 10:42 02/23/25 10:42 Labs: Lab Results 02/23/25 02/23/25 Range/Units 10:42 10:49 WBC 6.1 (4.8-10.8) X10*3/uL RBC 4.31 (4.20-5.50) X10*6/uL Hgb 12.8 (12.0-16.0) g/dl Hct 38.6 (37.0-47.0) % MCV 89.6 (80.0-98.0) fL MCH 29.7 (27.0-33.0) pg MCHC 33.2 (31.0-35.0) g/dl RDW 12.7 (11.0-16.0) % Plt Count 251 (160-400) X10*3/uL MPV 9.8 (9.4-12.3) fL Immature Gran % (Auto) 0.3 (0.0-0.4) % Neut % (Auto) 56.5 (45-73) % Lymph % (Auto) 30.1 (20-40) % [place] % (Auto) 5.9 (2-11) % Eos % (Auto) 6.4 H (0-4) % Baso % (Auto) 0.8 (0-2) % Lymph # (Auto) 1.9 (1.2-4.9) X10*3/uL [place] # (Auto) 0.4 (0.1-1.2) X10*3/uL Eos # (Auto) 0.4 (0.0-0.4) X10*3/uL Baso # (Auto) 0.1 (0.0-0.2) X10*3/uL Abs Immat Gran (auto) 0.02 (0.00-0.03) X10*3/uL Absolute Neuts (auto) 3.5 (2.0-8.3) x10*3/uL Absolute Nucleated RBC 0.000 (0.0-0.012) X10*3/uL Nucleated RBC % (auto) 0.0 (0.0-0.2) /100WBC Sodium 141 (135-145) mmol/L Potassium 3.9 (3.3-5.1) mmol/L Chloride 109 H (96-108) mmol/L Carbon Dioxide 25 (22-29) mmol/L Anion Gap 11 L (12-20) BUN 12 (9-16) mg/dL Creatinine 0.66 (0.5-1.4) mg/dL Estim Creat Clear Calc 85.6 Estimated GFR > 60 Random Glucose 90 (60-115) mg/dL Calcium 9.1 D (8.4-10.2) mg/dL Total Bilirubin 0.3 (0.0-1.0) mg/dL AST 23 (5-31) U/L ALT 26 (0-31) U/L Alkaline Phosphatase 108 (39-117) U/L Total Protein 6.8 (6.5-8.0) g/dL Albumin 4.2 (3.5-5.0) g/dL Urine Color Yellow Urine Appearance Clear Urine pH 6.0 (5.0-9.0) Ur Specific [place] 1.020 (1.005-1.025) Urine Protein Negative (Neg-Trace) mg/dL Urine Glucose (UA) Negative (Negative) mg/dL Urine Ketones Negative (Negative) mg/dL Urine Blood Negative (Negative) Urine Nitrite Negative (Negative) Ur Leukocyte Esterase Small (1+) H (Negative) Urine RBC 0-2 (0-2) /HPF Urine WBC 0-5 (0-5) /HPF Ur Squamous Epith Cells 3-5 (0-2) /HPF Calcium Oxalate Crystal Present Urine Bacteria None Seen (None Seen) Hyaline Casts 0-2 (0-2) /LPF Independent Interpretation I performed an independent interpretation of an: CT Scan Interpretation: No evidence of bowel obstruction or obstructing calculi on CT abdomen pelvis Radiology Impression Discussion of test interpretation with radiology: I have reviewed the radiologist's reading. Radiologist Impression: CT abdomen and pelvis with contrast Comparison: CT/SR - ABDOMEN ABD_PELVIS_IV_CONTRAST (ADULT) - 01/26/25 23:34 EDT Findings: CT abdomen: Lung bases are clear. No acute bony abnormality. Air-filled distention of the distal esophagus. Small bowel loops are of normal caliber. Mesh ventral hernia repair has been performed previously. Low-attenuation throughout the liver is indicative of fatty infiltration. Unchanged hepatic cysts measuring up to 2.5 cm in size. No concerning hepatic mass lesion. Main portal vein is patent. Spleen, pancreas, gallbladder, and adrenal glands are unremarkable. Unchanged 4 mm calculus within the interpolar region of the left kidney. Unchanged parapelvic cysts of both kidneys. No significant hydronephrosis. No free fluid or free air. CT pelvis: Moderate vascular calcification of the abdominal aorta and iliac arteries without aneurysmal dilation or dissection. Pessary device or estrogen delivery device is seen within the vagina. Endometrial stripe is prominent for a postmenopausal female measuring up to 1.4 cm. No focal areas of colonic wall thickening are identified. Scattered diverticuli seen throughout the colon without findings of diverticulitis. No findings of appendicitis. No free fluid or free air. IMPRESSION: 1. No findings of bowel obstruction. 2. Nonobstructing left renal calculus. 3. Fatty liver. 4. Prominence of the endometrial stripe, possibly related to hormone replacement therapy given the presence of a potential estrogen delivery device within the vagina. Clinical correlation advised. Correlation with any abnormal postmenopausal bleeding is also suggested. Pelvic ultrasound could further evaluate. External Record Review External record reviewed: Inpatient record, Office record and Outpatient record Prescription Management I considered prescription management with: Other Discharge Plan Discharge Clinical Impression: Nausea, vomiting, and diarrhea Abdominal pain Qualifiers: Abdominal location: generalized Qualified Code(s): R10.84 - Generalized abdominal pain Patient Disposition: Home, Self-Care Instructions: Abdominal Pain (ED) Additional Instructions: You were evaluated in the emergency department today for abdominal pain, nausea, vomiting and diarrhea. Your evaluation including urinalysis, labs and CT scan did not show evidence of conditions requiring emergent medical treatment at this time. You are being prescribed metoclopramide for nausea, take this as prescribed. Do not take this medication in combination with Zofran. You are also being prescribed sucralfate which you can take 30 minutes prior to eating. Keep your previously scheduled endoscopy for further evaluation of your symptoms. Return to the emergency department if you develop fever 100.4? F or greater, blood in your vomit or stool, worsening pain or any other new or concerning symptoms. Prescriptions: New metoclopramide HCl 10 mg tablet 10 mg PO Q6H PRN (Reason: nausea and vomiting) Qty: 10 0RF sucralfate 1 gram tablet 1 g PO TID Qty: 21 0RF No Action benzonatate 100 mg capsule 100 mg PO BID PRN (Reason: cough) Qty: 20 0RF oxycodone 5 mg tablet 5 mg PO Q8H PRN (Reason: pain) Qty: 20 0RF Rx Instructions: Partial Fill upon patient request. tramadol 50 mg tablet 50 mg PO Q6H PRN (Reason: pain) Qty: 20 0RF cefuroxime axetil 250 mg tablet 250 mg PO BID 7 Days Qty: 14 0RF Print Language: [place]
[2025-02-23] MEDS: iohexoL 350 MG/ML 100 ML INFUS..BTL 85 ML IV (11:52)
[2025-02-23 15:33] VITALS: BP 102/42; PULSE 61; RESP 16; TEMP 36.6; O2SAT 96
[2025-02-23 15:57] VITALS: BP 102/42; PULSE 61; RESP 16; TEMP 36.6; O2SAT 96
== END 2025-02-23 15:58 | disposition home or self-care (01) ==
PROVIDERS: Student in an Organized Health Care Education/Training Program; Emergency Provider Emergency Medicine Emergency Medical Services; PCP Nurse Practitioner Family
DX: R11.2 Nausea with vomiting, unspecified (principal); R19.7 Diarrhea, unspecified; R10.84 Generalized abdominal pain; Z79.899 Other long term (current) drug therapy
CPT/HCPCS: 36415; 74177; 80053; 81001; 85025; 87086; 96361; 96374; 96375; 99284; J1200; J1885; J2765; Q9967

== ENCOUNTER → 2025-02-23 11:33 | Outpatient (BNV) | payer OTHER, SELFPAY | PROVIDERS: Emergency Provider Emergency Medicine Emergency Medical Services; PCP Nurse Practitioner Family; Visit Provider Radiology Diagnostic Radiology | DX: R10.819 Abdominal tenderness, unspecified site (principal); R11.10 Vomiting, unspecified; R63.4 Abnormal weight loss; N20.0 Calculus of kidney; K76.0 Fatty (change of) liver, not elsewhere classified | CPT/HCPCS: 74177 ==

== ENCOUNTER 2025-04-02 20:55 | Inpatient (IN) | payer OTHER, SELFPAY ==
--- OUTSIDE RECORDS SUMMARY | 2025-01-25 10:30 | XMS_ITS ---
Author Organization [facility] Address [address] [place] [id number] Care Team Providers Care Verification Lead Name Role Phone NO, PCP Primary Care Provider Ebony Fernandez Unavailable Ne Domingo Unavailable [phone] Social History Sex Assigned At : Social History Observation Description Sex Assigned At Female Encounters Encounter Location Date Provider Diagnosis [facility] [address] [place] [phone] 01/25/2025 Ne Domingo Plan Of Treatment No Information Progress Notes * PARDEEP LILYPriscillaAnn Marie Ranjana rDOB:1965 (60 yo F)Acc No.[id number]:01/25/2025 Case Management New Patient: Ann Marie WATT Provider: Henok Domingo :1965 A ge:59 Y S ex:Female Date:01/25/2025 Address:.[address] [address], [address] [place], [place] [id number] Pcp:PCP NO Subjective: * Chief Complaints: * Objective: Assessment: Plan: * Treatment: * Images: Billing Information: * Visit Code: * Procedure Codes: Care Plan Details* * Electronic signature of Nu Guillermo on 04/02/2025 at 09:42 PM EDT Sign off status: Pending * Provider: Henok Domingo Date: 01/25/2025 Generated for Pardeep gaviria/Eliud/Govindsmmello on: 04/02/2025 09:42 PM EDT
--- OUTSIDE RECORDS SUMMARY | 2025-02-05 07:30 | XMS_ITS ---
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 Name Role Phone NO, PCP Primary Care Provider Ebony Fernandez REASON FOR VISIT housing Social History Sex Assigned At : Social History Observation Description Sex Assigned At Female Encounters Encounter Location Date Provider Diagnosis [facility] [address] [place] [phone] 02/05/2025 Ebony Fernandez Plan Of Treatment No Information Progress Notes * Ann Marie CONN rDOB:1965 (60 yo F)Acc No.[id number]:02/05/2025 Case Management Patient: Ann Marie WATT Monica Provider: Carlin Fernandez :1965 A ge:60 Y S ex:Female Date:02/05/2025 Address:[address] [address], [address] [place], [place] [id number] Pcp:PCP NO Subjective: * Chief Complaints: * 1 . Housing. * Medical History: Objective: Assessment: Plan: * Treatment: * Images: Billing Information: * Visit Code: * Procedure Codes: Care Plan Details* * Electronic signature of Myles Fernandez on 04/02/2025 at 09:42 PM EDT Sign off status: Pending * Provider: Carlin Fernandez Date: 0 02/05/2025 Generated for Pardeep gaviria/Eliud/eTransmitting on: 0 04/02/2025 09:42 PM EDT
[2025-04-02 21:03] VITALS: BP 121/58; BP 126/84; PULSE 55; PULSE 66; RESP 16; TEMP 36.6; O2SAT 96; O2SAT 98; BMI 27.3
--- OUTSIDE RECORDS SUMMARY | 2025-04-02 21:42 | XMS_ITS | Patient Health Record ---
Author Organization [facility] Address [address] [place] [address] Care Team Providers Care Client Experience Specialist Name Role Phone NO, PCP Primary Care Provider Ebony Fernandez Unavailable Ne Domingo Unavailable [phone] Reason For Referral No Information Social History Sex Assigned At : Social History Observation Description Sex Assigned At Female Encounters Encounter Location Date Provider Diagnosis [facility] [address] [place] [phone] 01/29/2025 Ebony Fernandez [facility] [phone] 01/23/2025 Ebony Fernandez Plan Of Treatment No Information Insurance Providers Payer Name Payer Address Payer Phone Subscriber Number Group Number Insured Name Patient Relationship to Insured Coverage Start Date Coverage End Date [facility] [employer] [address] [place] [address] [phone] [id number] Ann Marie Hart Self - patient is the insured [place] Medicaid Standard [address] [place] [address] [id number] Ann Marie Hart Self - patient is the insured
[2025-04-02 22:18] LABS: MANUAL DIFF FLAG NO
[2025-04-02 22:19] LABS: Hematocrit 38.3 % (37.0-47.0); Hemoglobin 12.9 g/dl (12.0-16.0); Imm Gran Pct Auto 0.6 % (0.0-0.4); Mean Corpuscular HGB Conc 33.7 g/dl (31.0-35.0); Mean Corpuscular Hemoglobin 30.0 pg (27.0-33.0); Mean Corpuscular Volume 89.1 fL (80.0-98.0); Platelet Count 250 X10*3/uL (160-400); Red Blood Count 4.30 X10*6/uL (4.20-5.50); White Blood Count 8.8 X10*3/uL (4.8-10.8)
[2025-04-02 22:20] LABS: Imm Gran Abs Auto 0.05 X10*3/uL (0.00-0.03); Lymphocytes Absolute Auto 2.1 X10*3/uL (1.2-4.9); NRBC Abs Auto 0.000 X10*3/uL (0.0-0.012); NRBC Pct Auto 0.0 /100WBC (0.0-0.2)
--- NOTE | 2025-04-02 22:27 | PC.NURSE ---
Sec 12 completed by care team.
[2025-04-02 22:42] LABS: Alanine Aminotransferase 29 U/L (0-31); Albumin Level 4.3 g/dL (3.5-5.0); Alkaline Phosphatase 110 U/L (39-117); Anion Gap 11 (12-20); Aspartate Amino Transferase 22 U/L (5-31); Blood Urea Nitrogen 15 mg/dL (9-16); Calcium 9.9 mg/dL (8.4-10.2); Carbon Dioxide 27 mmol/L (22-29); Chloride 107 mmol/L (96-108); Creatinine Clr Calc Pharmacy 75.3; Estimated Glomerular Filt Rate > 60; Potassium 3.8 mmol/L (3.3-5.1); Sodium 141 mmol/L (135-145); Total Protein 6.9 g/dL (6.5-8.0)
--- NOTE | 2025-04-02 22:58 | ECG_ITS ---
Test Reason : CHECK QTC INTERVAL Blood Pressure : */* mmHG Vent. Rate : 51 BPM Atrial Rate : 51 BPM P-R Int : 160 ms QRS Dur : 92 ms QT Int : 414 ms P-R-T Axes : * -23 157 degrees QTcB Int : 381 ms Sinus bradycardia Nonspecific T wave abnormality Abnormal ECG When compared with ECG of 27-Jun-2023 12:07, Vent. rate has decreased by 40 bpm Incomplete right bundle branch block is no longer Present Referred By: Audrey Hernandez Electronically Signed By: ALYSSIA ROBLEDO
--- NOTE | 2025-04-03 02:32 | ED.PSYCH ---
HPI - Psych General Chief Complaint: Psychiatric Symptoms Stated Complaint: si Time Seen by Provider: 04/02/25 22:19 Source: patient, EMS, RN notes reviewed, old records reviewed and social staff worker Mode of arrival: EMS Limitations: language barrier History of Present Illness ED Provider: Dr. Audrey Hernandez HPI Narrative: 60-year-old female with extensive psychiatric history including depression, anxiety, suicide attempts presenting with suicidal ideations with multiple different plans for suicide. Patient was seen at [facility] earlier today and reported plan for attempt to jump off a bridge. She was placed on a section 12 and inpatient treatment was recommended. Patient reports worsening depression over the last several weeks. Endorses multiple plans for self-harm but tonight plan was to jump off a bridge. Has had history of previous suicide attempts. No ingestion of medications or drugs today. Denies alcohol use. Has been feeling physically well otherwise. Related Data Home Medications ?Medication ?Instructions ?Recorded ?Confirmed albuterol sulfate 2.5 mg/3 mL 2.5 mg Q6H PRN Wheezing 04/03/25 04/03/25 (0.083 %) solution for nebulization atorvastatin 40 mg tablet 40 mg PO DAILY 04/03/25 04/03/25 budesonide-formoterol HFA 160 inhalation BID 04/03/25 mcg-4.5 mcg/actuation aerosol inhaler (Symbicort) cetirizine 10 mg tablet 10 mg PO DAILY 04/03/25 04/03/25 escitalopram oxalate 10 mg tablet 10 mg PO DAILY 04/03/25 04/03/25 montelukast 10 mg tablet 10 mg PO DAILY 04/03/25 04/03/25 omeprazole 40 mg capsule,delayed 40 mg PO DAILY 04/03/25 04/03/25 release ramelteon 8 mg tablet (Rozerem) 8 mg PO BEDTIME 04/03/25 04/03/25 risperidone 0.5 mg tablet 0.5 mg PO BID 04/03/25 04/03/25 umeclidinium 62.5 mcg/actuation 1 inh inhalation DAILY 04/03/25 04/03/25 blister powder for inhalation (Incruse Ellipta) zolpidem 5 mg tablet 5 mg PO BEDTIME 04/03/25 04/03/25 Allergies Allergy/AdvReac Type Severity Reaction Status Date / Time prednisone Allergy Unknown Verified 04/02/25 21:20 Review of Systems Review of Systems: as per HPI, full review of systems performed and negative but for the above mentioned pertinent positives and negatives. [facility] Past Medical History Medical History Kidney stone Social History Social History Household Members: Family Do you presently have visiting nurse or other home services: No Alcohol intake: unknown Patient Tobacco Use Status: Never used Tobacco e-Cigarette/Vaping Use: Never Used Second Hand Smoke Exposure: No service: No Sexual orientation: Straight/Heterosexual Physical Exam Exam: Exam: GENERAL: Depressed, nontoxic. SKIN: Normal skin color for ethnicity, warm, dry, no rashes noted. HEENT:? Normocephalic, atraumatic, no stridor, posterior oropharynx nonerythematous, dentition intact, EOMI. NECK: Soft, supple, full ROM, midline structures nontender, no step-offs, no deformities, no lymphadenopathy. CHEST: Heart regular rate and rhythm, no murmurs, symmetric chest rise and fall. PULMONARY: Clear to auscultation bilaterally, no labored breathing, no wheezes/rhales/rhonchi. ABDOMINAL: Soft, nondistended, nontender, positive bowel sounds in all quadrants. : Deferred. MUSCULOSKELETAL: Normal tone, full range of motion, no deformities, no peripheral edema. NEURO: Alert and oriented x3, CN II through XII intact, equal strength and sensation bilateral upper and lower extremities, no focal neurologic deficits.? PSYCHIATRIC: Flat affect, poor eye contact, withdrawn Vital Signs: Vital Signs: Last Vital Signs Temp 97.4 F 04/05/25 07:40 Pulse 83 04/05/25 07:40 Resp 16 04/05/25 07:40 BP 106/53 L 04/05/25 07:40 Pulse Ox 95 04/05/25 07:40 O2 Del Method Room Air 04/05/25 07:40 BMI result Body Mass Index 27.3 Course Course Course Narrative: 0:10 AM 04/03/2025 (Dr. Audrey Hernandez, D.O.) Time: 03:11 Date: 04/03/25 Provider: Audrey Hernandez DO Patient in physician observation for psychiatric evaluation.? No acute events reported overnight. No current complaints. VS stable.? Patient is in bed search status. Will continue to monitor. Reevaluation(s) Reevaluation #1: 7:53 AM 04/03/2025 (Dr. Javon Howe): Patient in physician observation for psychiatric evaluation.? No acute events reported overnight. No current complaints. VS stable.? Medications Administered Discontinued Medications Generic Name Dose Route Start Last Admin Trade Name Freq PRN Reason Stop Dose Admin Acetaminophen 650 mg 04/03/25 14:26 04/04/25 21:44 Acetaminophen 325 Mg Tablet PO 650 mg Q6H PRN Administration Headache/Pain, Scale 1-10 Atorvastatin Calcium 40 mg 04/04/25 09:00 04/05/25 08:15 Atorvastatin Calcium 40 Mg Tablet PO 40 mg DAILY AKIN Administration Diazepam 4 mg 04/03/25 11:16 04/03/25 11:26 Diazepam 2 Mg Tablet PO 04/03/25 11:17 4 mg ONCE ONE Administration Escitalopram Oxalate 10 mg 04/04/25 09:00 04/05/25 08:16 Escitalopram Oxalate 10 Mg Tablet PO 10 mg DAILY AKIN Administration Hydroxyzine HCl 25 mg 04/03/25 14:26 04/04/25 21:41 Hydroxyzine Hcl 25 Mg Tablet PO 25 mg Q6H PRN Administration mild anxiety Influenza Virus Vaccine 0.5 ml 04/03/25 16:00 04/03/25 17:02 Flu Vacc [id number](6mo Up)/Pf 0.5 Ml Syringe IM 04/03/25 16:01 0.5 ml .ONCE ONE Administration Loratadine 10 mg 04/04/25 09:00 04/05/25 08:16 Loratadine 10 Mg Tablet PO 10 mg DAILY AKIN Administration Montelukast Sodium 10 mg 04/04/25 09:00 04/05/25 08:16 Montelukast Sodium 10 Mg Tablet PO 10 mg DAILY AKIN Administration Omeprazole 40 mg 04/04/25 09:00 04/05/25 08:15 Omeprazole 40 Mg Capsule.Dr PO 40 mg DAILY AKIN Administration Risperidone 0.5 mg 04/03/25 21:00 04/05/25 08:15 Risperidone 0.5 Mg Tablet PO 0.5 mg BID AKIN Administration Tiotropium [place] 2 puff 04/04/25 09:00 04/05/25 07:33 Tiotropium [place] 2.5 Mcg 1 Puff/2.5 Mcg Mist.Inhal INHALE 2 puff RDAILY AKIN Administration Trazodone HCl 50 mg 04/03/25 14:26 04/04/25 21:40 Trazodone Hcl 50 Mg Tablet PO 50 mg BEDTIME MRX1 PRN Administration Insomnia Zolpidem Tartrate 5 mg 04/03/25 03:04 04/03/25 03:13 Zolpidem Tartrate 5 Mg Tablet PO 04/03/25 03:05 5 mg ONCE ONE Administration Zolpidem Tartrate 5 mg 04/03/25 21:00 04/04/25 21:43 Zolpidem Tartrate 5 Mg Tablet PO 5 mg BEDTIME AKIN Administration Medical Decision Making Medical Decision Making [facility] Narrative: Patient presents with psychologic complaints. Differential diagnosis includes suicidal ideations, homicidal ideations, depression, anxiety, mood disorder, decompensated mental illnesses such as schizophrenia or bipolar disorder, medication noncompliance, among many others. Medical clearance protocol was initiated. Patient has been placed on a section 12 for intent for self-harm in the setting of severe depression. This was initiated outside of the emergency department at [facility]. Anticipate inpatient status. Awaiting for bed availability. Differential Diagnosis Differential Diagnoses: The differential diagnosis associated with the presentation includes (As above) Admission/Observation Consideration of admission/observation: Escalation of care including admission/observation considered Consult Healthcare Provider Management of the patient was discussed with: Behavioral Health Provider Lab Data [facility] Lab Attestation statement: I reviewed the patient's lab results. 04/02/25 22:13 04/04/25 07:42 Labs: Lab Results 04/02/25 04/03/25 Range/Units 22:13 03:07 WBC 8.8 (4.8-10.8) X10*3/uL RBC 4.30 (4.20-5.50) X10*6/uL Hgb 12.9 (12.0-16.0) g/dl Hct 38.3 (37.0-47.0) % MCV 89.1 (80.0-98.0) fL MCH 30.0 (27.0-33.0) pg MCHC 33.7 (31.0-35.0) g/dl RDW 12.6 (11.0-16.0) % Plt Count 250 (160-400) X10*3/uL MPV 10.0 (9.4-12.3) fL Immature Gran % (Auto) 0.6 H (0.0-0.4) % Neut % (Auto) 69.8 (45-73) % Lymph % (Auto) 24.0 (20-40) % [place] % (Auto) 5.4 (2-11) % Eos % (Auto) 0.0 (0-4) % Baso % (Auto) 0.2 (0-2) % Lymph # (Auto) 2.1 (1.2-4.9) X10*3/uL [place] # (Auto) 0.5 (0.1-1.2) X10*3/uL Eos # (Auto) 0.0 (0.0-0.4) X10*3/uL Baso # (Auto) 0.0 (0.0-0.2) X10*3/uL Abs Immat Gran (auto) 0.05 H (0.00-0.03) X10*3/uL Absolute Neuts (auto) 6.2 (2.0-8.3) x10*3/uL Absolute Nucleated RBC 0.000 (0.0-0.012) X10*3/uL Nucleated RBC % (auto) 0.0 (0.0-0.2) /100WBC Sodium 141 (135-145) mmol/L Potassium 3.8 (3.3-5.1) mmol/L Chloride 107 (96-108) mmol/L Carbon Dioxide 27 (22-29) mmol/L Anion Gap 11 L (12-20) BUN 15 (9-16) mg/dL Creatinine 0.66 (0.5-1.4) mg/dL Estim Creat Clear Calc 75.3 Estimated GFR > 60 Random Glucose 142 H (60-115) mg/dL Calcium 9.9 D (8.4-10.2) mg/dL Total Bilirubin 0.3 (0.0-1.0) mg/dL AST 22 (5-31) U/L ALT 29 (0-31) U/L Alkaline Phosphatase 110 (39-117) U/L Total Protein 6.9 (6.5-8.0) g/dL Albumin 4.3 (3.5-5.0) g/dL Urine Color Yellow Urine Appearance Clear Urine pH 6.0 (5.0-9.0) Ur Specific [place] 1.020 (1.005-1.025) Urine Protein Negative (Neg-Trace) mg/dL Urine Glucose (UA) Negative (Negative) mg/dL Urine Ketones Negative (Negative) mg/dL Urine Blood Negative (Negative) Urine Nitrite Negative (Negative) Ur Leukocyte Esterase Trace H (Negative) Urine RBC 0-2 (0-2) /HPF Urine WBC 6-10 H (0-5) /HPF Ur Squamous Epith Cells 3-5 (0-2) /HPF Urine Bacteria None Seen (None Seen) Hyaline Casts 0-2 (0-2) /LPF Urine Opiates Screen Not Detected (Not Detect) Ur Buprenorphine Scrn Not Detected (Not Detect) ng/mL Ur Oxycodone Screen Not Detected (Not Detect) ng/mL Urine Methadone Screen Not Detected (Not Detect) ng/mL Urine Fentanyl Screen Not Detected (Not Detect) Ur Barbiturates Screen Not Detected (Not Detect) Ur Phencyclidine Scrn Not Detected (Not Detect) Ur Amphetamines Screen Not Detected (Not Detect) U Benzodiazepines Scrn POSITIVE H (Not Detect) Urine Cocaine Screen Not Detected (Not Detect) U Marijuana (THC) Screen Not Detected (Not Detect) Ethyl Alcohol < 10 mg/dL Independent Historian Clinical information obtained from an independent historian. History obtained from or confirmed by: EMS and Other External Record Review External record reviewed: Inpatient record Chronic Conditions Patient?s care impacted by: Other (Depression) Discharge Plan Discharge Clinical Impression: Depression, Suicidal ideation Patient Disposition: Admitted As Inpatient Discharge Date/Time: 04/03/25 14:06
--- NOTE | 2025-04-03 03:02 | PC.NURSE ---
Nocturnal CPAP applied per MD order. 1:1 sitter at bedside for safety.
[2025-04-03 03:15] LABS: Appearance Urine Clear; Glucose Urine UA Negative (Negative); PH 6.0 (5.0-9.0); Specific Gravity - Urine 1.020 (1.005-1.025); UMIC TRIGGER UACC YES
[2025-04-03 03:20] LABS: UACC Culture Trigger YES
--- NOTE | 2025-04-03 03:25 | PC.NURSE ---
Patient medicated per MAR.
[2025-04-03 03:26] LABS: Cannabinoid Screen Urine Not Detected (Not Detect)
[2025-04-03 06:19] VITALS: BP 93/62; PULSE 59; RESP 16; TEMP 36.6; O2SAT 99
--- NOTE | 2025-04-03 06:49 | PC.NURSE ---
Patient is awake, CPAP removed.
--- NOTE | 2025-04-03 09:54 | MHC.CARE ---
patient seen in the community by [facility] who determined patient meets criteria for IPLOC.
--- NOTE | 2025-04-03 12:24 | PC.NURSE ---
Unable to fully complete accurate med rec due to pt being unsure which medication she takes. Pharmacy aware, pharmacy will follow up to complete accurate med req.
--- NOTE | 2025-04-03 12:29 | PHA.MEDREC ---
Pharmacy Consult ? Medication Reconciliation Pharmacy has completed the medication reconciliation. Reviewed med rec done by nursing. Removed meds that hadn't been filled in >3 months.
--- NOTE | 2025-04-03 13:17 | PC.NURSE ---
Pt's brother Gage can be contacted @ [phone] w/any updates or concerns.
--- NOTE | 2025-04-03 13:39 | P.CONHOSP_ITS ---
History of Present Illness Data of Consult Service Date: 04/03/25 Primary Care Provider: Laron Will NP [facility] Reason for consult: Medical management 60-year-old female with a past medical history including depression, anxiety, BRENT, asthma, hyperlipidemia suicide attempts, presented to the ED with suicidal ideations with multiple different plans. Patient is admitted to inpatient psych for further care. Review of ED workup reveals no WBCs, no anemia, no evidence of renal or liver impairment, urine is negative for infection. U tox positive for benzodiazepines, ETOH <10. On exam patient has no concerns. She denies any shortness of breath, dizziness, lightheadedness, abdominal pain or any other concerning symptoms. Assisted with visit by a fashion patternmaker Oksana in person. Review of Systems 2 Review of Systems: Denies any shortness of breath, chest pain, dizziness, lightheadedness, abdominal pain or discomfort, nausea vomiting or diarrhea PMFSH Medical History Kidney stone Social History Alcohol intake: unknown Smoked in Last 30 Days: No Use of substances other than those prescribed or required for medical reasons: No Advance Directives: No Advance Directives Information Provided: No Patient : No Meds Allergies Allergy/AdvReac Type Severity Reaction Status Date / Time prednisone Allergy Unknown Verified 04/02/25 21:20 Home Medications ?Medication ?Instructions ?Recorded ?Confirmed ?Last Taken ?Type albuterol sulfate 2.5 mg/3 mL 2.5 mg 04/03/25 Unknown History (0.083 %) solution for nebulization atorvastatin 40 mg tablet 40 mg PO DAILY 04/03/2503/18 Unknown History budesonide-formoterol HFA 160 inhalation 04/03/25 Unk nown History mcg-4.5 mcg/actuation aerosol inhaler (Symbicort) omeprazole 40 mg capsule,delayed 40 mg PO DAILY 04/03/25 Unknown History release risperidone 0.5 mg tablet 0.5 mg PO BID 04/03/2504/03 Unknown History umeclidinium 62.5 mcg/actuation 1 inh inhalation DAILY 04/03/25 04/03/25 Unknown History blister powder for inhalation (Incruse Ellipta) Physical Exam 2 Vital Signs and Narrative: Vital Signs: Last Vital Signs Temp 97.9 F 04/03/25 06:19 Pulse 59 04/03/25 06:19 Resp 16 04/03/25 06:19 BP 93/62 04/03/25 06:19 Pulse Ox 99 04/03/25 06:19 O2 Del Method Room Air 04/03/25 06:19 BMI result Body Mass Index 27.3 CONST: Alert and oriented, in NAD. Well nourished HEENT: Normocephalic, atraumatic, MMM RESP: Lungs clear, RRR even and regular HEART:,RRR, S1, S2. No edema GI:Abdomen Soft NT, ND. + BS times four :Deferred SKIN: Warm dry and intact, no visible lesions or rashes NEURO:CN II-XII Intact bilaterally, Sensation intact. Speech clear PSYCH: Normal affect Results Labs 04/02/25 22:13 04/02/25 22:13 Labs: Laboratory Results - last 24 hr 04/02/25 04/03/25 22:13 03:07 MCV 89.1 MCH 30.0 MCHC 33.7 RDW 12.6 Plt Count 250 MPV 10.0 Immature Gran % (Auto) 0.6 H Neut % (Auto) 69.8 Lymph % (Auto) 24.0 [place] % (Auto) 5.4 Eos % (Auto) 0.0 Baso % (Auto) 0.2 Lymph # (Auto) 2.1 [place] # (Auto) 0.5 Eos # (Auto) 0.0 Baso # (Auto) 0.0 Abs Immat Gran (auto) 0.05 H Absolute Neuts (auto) 6.2 Absolute Nucleated RBC 0.000 Nucleated RBC % (auto) 0.0 Anion Gap 11 L Estim Creat Clear Calc 75.3 Estimated GFR > 60 Random Glucose 142 H Calcium 9.9 D Total Bilirubin 0.3 AST 22 ALT 29 Alkaline Phosphatase 110 Total Protein 6.9 Albumin 4.3 Urine Color Yellow Urine Appearance Clear Urine pH 6.0 Ur Specific [place] 1.020 Urine Protein Negative Urine Glucose (UA) Negative Urine Ketones Negative Urine Blood Negative Urine Nitrite Negative Ur Leukocyte Esterase Trace H Urine RBC 0-2 Urine WBC 6-10 H Ur Squamous Epith Cells 3-5 Urine Bacteria None Seen Hyaline Casts 0-2 Urine Opiates Screen Not Detected Ur Buprenorphine Scrn Not Detected Ur Oxycodone Screen Not Detected Urine Methadone Screen Not Detected Urine Fentanyl Screen Not Detected Ur Barbiturates Screen Not Detected Ur Phencyclidine Scrn Not Detected Ur Amphetamines Screen Not Detected U Benzodiazepines Scrn POSITIVE H Urine Cocaine Screen Not Detected U Marijuana (THC) Screen Not Detected Ethyl Alcohol < 10 Assessment and Plan (1) HLD (hyperlipidemia): Status: Acute Plan 60-year-old female with past medical history of hyperlipidemia, BRENT, depression, anxiety, asthma presented to ED with increased depression and suicidal ideation with a plan. She is admitted to inpatient psych for further care Depression/anxiety/suicidal ideation Plan per Psychiatry team BRENT Uses CPAP at home Hyperlipidemia Continues with atorvastatin Asthma Spiriva Respimat daily Albuterol as needed Stable and no exacerbation GERD Continue omeprazole Thank you for allowing me to participate in the care of this patient. Will follow as needed, please notify medical provider with any changes in condition or concerns.
[2025-04-03 14:28] VITALS: BP 124/62; PULSE 66; RESP 15; TEMP 36.5; O2SAT 97
[2025-04-03] MEDS: Flu Vacc TS2025-26(6mo up)/PF 0.5 ML SYRINGE IM (17:02)
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
[2025-04-03 20:18] VITALS: BP 116/56; PULSE 78; RESP 18; TEMP 36.5; O2SAT 96
[2025-04-04 07:00] VITALS: BMI 27.9
[2025-04-04 07:42] VITALS: BP 119/60; PULSE 66; RESP 16; TEMP 36.4; O2SAT 92
[2025-04-04 08:26] LABS: Alanine Aminotransferase 33 U/L (0-31); Albumin Level 4.4 g/dL (3.5-5.0); Alkaline Phosphatase 118 U/L (39-117); Anion Gap 11 (12-20); Aspartate Amino Transferase 31 U/L (5-31); Blood Urea Nitrogen 20 mg/dL (9-16); Calcium 10.0 mg/dL (8.4-10.2); Carbon Dioxide 28 mmol/L (22-29); Chloride 107 mmol/L (96-108); Cholesterol 235 mg/dL (<200); Creatinine Clr Calc Pharmacy 69.8; Estimated Glomerular Filt Rate > 60; HDL Cholesterol 54 mg/dL (>40); Potassium 3.8 mmol/L (3.3-5.1); Sodium 142 mmol/L (135-145); Total Protein 6.9 g/dL (6.5-8.0); Triglycerides 267 mg/dL (<150)
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
[2025-04-04 09:22] LABS: Hemoglobin A1C 147.5007 umol/L; Total Hemoglobin (HGBA1C) 3625.7555 umol/L
[2025-04-04] MEDS: Tiotropium Bromide 2.5 mcg 1 PUFF/2.5 MCG MIST.INHAL 2 PUFF INHALE (10:42)
[2025-04-04 19:16] VITALS: BP 125/56; PULSE 74; RESP 16; TEMP 36.6; O2SAT 97
[2025-04-05] MEDS: Tiotropium Bromide 2.5 mcg 1 PUFF/2.5 MCG MIST.INHAL 2 PUFF INHALE (07:33)
[2025-04-05 07:40] VITALS: BP 106/53; PULSE 83; RESP 16; TEMP 36.3; O2SAT 95
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
== END 2025-04-05 12:25 | disposition home or self-care (01) | DRG 754 ==
LOC: HO.ED 22:19 → HO.PADLT16 04-03 13:05
PROVIDERS: Admitting Provider Registered Nurse; Emergency Provider Emergency Medicine; PCP Nurse Practitioner Family; Responsible Provider Registered Nurse; Visit Provider Psychiatry & Neurology Psychiatry
DX: F32.9 Major depressive disorder, single episode, unspecified (principal); R45.851 Suicidal ideations; E78.5 Hyperlipidemia, unspecified; G47.33 Obstructive sleep apnea (adult) (pediatric); Z23 Encounter for immunization; J45.909 Unspecified asthma, uncomplicated; K21.9 Gastro-esophageal reflux disease without esophagitis; Z79.899 Other long term (current) drug therapy
CPT/HCPCS: 36415; 80053; 80061; 80307; 81001; 83036; 85025; 87086; 90656; 93005; 99285

== ENCOUNTER → 2025-04-02 22:58 | Outpatient (BNV) | payer OTHER, SELFPAY | PROVIDERS: Admitting Provider Registered Nurse; Emergency Provider Emergency Medicine; PCP Nurse Practitioner Family; Visit Provider Internal Medicine | DX: R00.1 Bradycardia, unspecified (principal) | CPT/HCPCS: 93010 ==

== ENCOUNTER → 2025-04-03 13:04 | Outpatient (BNV) | payer OTHER, SELFPAY | PROVIDERS: Admitting Provider Registered Nurse; Emergency Provider Emergency Medicine; PCP Nurse Practitioner Family; Visit Provider Nurse Practitioner Family | DX: E78.5 Hyperlipidemia, unspecified (principal) | CPT/HCPCS: 99221 ==

== ENCOUNTER → 2025-04-03 13:04 | Outpatient (BNV) | payer OTHER, SELFPAY | PROVIDERS: Admitting Provider Registered Nurse; Emergency Provider Emergency Medicine; PCP Nurse Practitioner Family; Responsible Provider Registered Nurse; Visit Provider Registered Nurse | DX: F32.3 Major depressive disorder, single episode, severe with psychotic features (principal); F43.11 Post-traumatic stress disorder, acute | CPT/HCPCS: 99233 ==

== ENCOUNTER 2025-06-10 12:25 | Emergency (ER) | payer OTHER, SELFPAY ==
--- NOTE | ~2025-06-10 | XR_ITS ---
EXAMINATION: XR CHEST CLINICAL INFORMATION: cough COMPARISON: 06/27/2023. TECHNIQUE: AP view of the chest was obtained. FINDINGS: The cardiac, hilar, and mediastinal contours are normal. The lungs are clear bilaterally. No pneumothorax or effusion. No focal osseous or soft tissue abnormality. XR/XR chest 1V IMPRESSION: No active disease. Electronically signed by: Maycol Ayala MD 06/10/2025 01:56 PM EST
[2025-06-10 12:38] VITALS: BP 150/41; BP 168/92; PULSE 86; PULSE 91; RESP 16; TEMP 36.7; O2SAT 96; O2SAT 98; BMI 29.4
--- NOTE | 2025-06-10 12:40 | ED.GENADULT ---
HPI - General Adult General Chief complaint: Dyspnea Stated complaint: sob, ?seizure Time Seen by Provider: 06/10/25 12:36 History of Present Illness ED Provider: Dr. Mari HPI narrative: This is a 60-year-old female history of major depressive disorder, PTSD presented hospital today for evaluation of shortness of breath. The patient was given DuoNeb EN route. Patient is reportedly has been coughing for the past 3 weeks. Patient is uncooperative. The patient is not responding to any questions at this time. customer assistance associate was present for this encounter. Related Data Home Medications ?Medication ?Instructions ?Recorded ?Confirmed albuterol sulfate 2.5 mg/3 mL 2.5 mg Q6H PRN Wheezing 04/03/25 04/03/25 (0.083 %) solution for nebulization atorvastatin 40 mg tablet 40 mg PO DAILY 04/03/25 04/03/25 budesonide-formoterol HFA 160 inhalation BID 04/03/25 mcg-4.5 mcg/actuation aerosol inhaler (Symbicort) cetirizine 10 mg tablet 10 mg PO DAILY 04/03/25 04/03/25 escitalopram oxalate 10 mg tablet 10 mg PO DAILY 04/03/25 04/03/25 montelukast 10 mg tablet 10 mg PO DAILY 04/03/25 04/03/25 omeprazole 40 mg capsule,delayed 40 mg PO DAILY 04/03/25 04/03/25 release ramelteon 8 mg tablet (Rozerem) 8 mg PO BEDTIME 04/03/25 04/03/25 risperidone 0.5 mg tablet 0.5 mg PO BID 04/03/25 04/03/25 umeclidinium 62.5 mcg/actuation 1 inh inhalation DAILY 04/03/25 04/03/25 blister powder for inhalation (Incruse Ellipta) zolpidem 5 mg tablet 5 mg PO BEDTIME 04/03/25 04/03/25 Previous Rx's ?Medication ?Instructions ?Recorded acetaminophen 500 mg tablet 1,000 mg (2 x 500 mg) PO Q8H PRN 06/10/25 pain 10 days #60 tabs benzonatate 200 mg capsule 200 mg PO TID PRN cough #20 caps 06/10/25 cephalexin 500 mg tablet 500 mg PO Q8H 7 days #21 tabs 06/10/25 ibuprofen 400 mg tablet 400 mg PO Q8H PRN pain #30 tabs 06/10/25 prednisone 20 mg tablet 40 mg (2 x 20 mg) PO DAILY 5 days 06/10/25 #10 tabs Allergies Allergy/AdvReac Type Severity Reaction Status Date / Time diphenhydramine (From Allergy Shakiness Verified 06/10/25 14:19 Benadryl) Review of Systems Review of Systems: Unable to obtain due to patient's cooperation [facility] Past Medical History [facility] Narrative: Unable to obtain due to patient's cooperation Medical History Kidney stone Social History Social History Household Members: Family Do you presently have visiting nurse or other home services: No Alcohol intake: unknown Patient Tobacco Use Status: Never used Tobacco e-Cigarette/Vaping Use: Never Used Second Hand Smoke Exposure: No Advance Directives: No Advance Directives Information Provided: Yes service: No Sexual orientation: Straight/Heterosexual Physical Exam ED Exam Exam: General: Resting in bed Head: Normacephalic, atraumatic ENT: oral mucosa moist, neck supple, no tracheal deviation Cardiovascular: regular rate, regular rhythm, no murmurs, rubbing, gallops Respiratory: Patient is voluntary hyperventilating in bed. She is breathe faster the closer I get to her. And when I listen to her. Gastrointestinal: Soft, non distended, non tender, non guarding Extremities: No limb pain or swelling, no calf tenderness Neurological: Awake and alert, no focal neurological deficit, patient is shaking however responsive to verbal stimulation. I suspect patient is likely has a psychogenic induced seizure like activity based on my examination. This is a nonepileptic seizure-like activity. Skin: Warm and dry Vital Signs: Vital Signs - 24 hr 06/10/25 12:38 06/10/25 13:19 Temperature 98.0 F Pulse Rate 86 76 Respiratory Rate 16 22 H Blood Pressure 150/41 H Pulse Oximetry 98 Oxygen Delivery Method Room Air BMI result Body Mass Index 29.4 Medications Administered Discontinued Medications Generic Name Dose Route Start Last Admin Trade Name Freq PRN Reason Stop Dose Admin Acetaminophen 975 mg 06/10/25 14:15 06/10/25 14:23 Acetaminophen 325 Mg Tablet PO 06/10/25 14:16 975 mg ONCE ONE Administration Benzonatate 200 mg 06/10/25 14:14 06/10/25 14:23 Benzonatate 100 Mg Capsule PO 06/10/25 14:15 200 mg ONCE ONE Administration Cephalexin HCl 500 mg 06/10/25 15:18 06/10/25 15:44 Cephalexin 500 Mg Capsule PO 06/10/25 15:19 500 mg ONCE ONE Administration Albuterol Sulfate 5 mg/ 0 mg 06/10/25 13:15 06/10/25 13:18 Albuterol/Ipratropium 3 ml INHALE 06/10/25 13:16 1 each ONCE ONE Administration Lactated Ringer's 1,000 mls @ 999 mls/hr 06/10/25 13:15 06/10/25 14:30 Lr IV 06/10/25 14:15 Infused .Q1H1M AKIN Infusion Magnesium Sulfate 2 gm in 50 mls @ 50 mls/hr 06/10/25 14:15 06/10/25 15:29 Magnesium Sulfate/H2o IV 06/10/25 15:14 Infused ONCE ONE Infusion Ketorolac Tromethamine 15 mg 06/10/25 14:15 06/10/25 14:23 Ketorolac Tromethamine 15 Mg/Ml Vial IVPUSH 06/10/25 14:16 15 mg ONCE ONE Administration Midazolam HCl 2 mg 06/10/25 13:01 06/10/25 13:05 Midazolam Hcl 2 Mg/2 Ml Vial IVPUSH 06/10/25 13:02 2 mg ONCE ONE Administration Prednisone 40 mg 06/10/25 14:16 06/10/25 14:23 Prednisone 20 Mg Tablet PO 06/10/25 14:17 40 mg ONCE ONE Administration Medical Decision Making Medical Decision Making MDM Narrative: 60-year-old female presented hospital today for evaluation of shortness of breath. On monitor the patient has not hypoxic. However I was called to the room as the patient was having seizure-like activity by the nursing staff. On further examination. Patient is responsive verbally. I did lift her arm above her face. Patient is actively holding her arm up in the air. I do not think patient is having a epileptic seizure at this time. This is likely psychogenic induced. Patient's seizure-like activity shakes more when the closer I do get to her. However diminishes when I step away from the bed. As I was listening to patient's lungs. Patient began to hyperventilate more while I was performing the exam. However she stopped shortly after I stepped back with my stethoscope. I attempted to communicate patient with a customer assistance associate at bedside however patient is uncooperative at this time. I am unsure of the reason why she is here in the ER today. We will obtain a screening lab work at this time. We will give the patient a breathing treatment. However patient does not appear to be tachypneic or hypoxic at rest. Her symptoms appears to be voluntary in nature. 2 mg of IV Versed will be given to the patient at this time for anxiety. We will assess CK level CK level was not elevated. I do not think patient has true epileptic seizures. Patient's lab work is unremarkable. Patient's chest x-ray is clear. UA did show some signs of possible UTI dose of Keflex will be given here. I did give patient a dose of prednisone. Patient stated her breathing has improved after breathing treatment and prednisone. We will prescribe antibiotic for possible UTI. Prednisone will be sent for her wheezing. Chest x-ray is clear no sign of pneumonia. Patient is requesting prescription for ibuprofen and Tylenol. This will be prescribed to the patient. Patient will be discharged home. Differential Diagnosis Differential Diagnoses: The differential diagnosis associated with the presentation includes Nonepileptic seizures, anxiety, pneumonia, asthma, URI Lab Data MDM Lab Attestation statement: I reviewed the patient's lab results. 06/10/25 13:21 06/10/25 13:21 Labs: Lab Results 06/10/25 06/10/25 Range/Units 13:21 14:14 WBC 7.8 (4.8-10.8) X10*3/uL RBC 4.40 (4.20-5.50) X10*6/uL Hgb 12.8 (12.0-16.0) g/dl Hct 40.4 (37.0-47.0) % MCV 91.8 (80.0-98.0) fL MCH 29.1 (27.0-33.0) pg MCHC 31.7 (31.0-35.0) g/dl RDW 12.3 (11.0-16.0) % Plt Count 286 (160-400) X10*3/uL MPV 9.7 (9.4-12.3) fL Immature Gran % (Auto) 0.1 (0.0-0.4) % Neut % (Auto) 55.5 (45-73) % Lymph % (Auto) 30.4 (20-40) % Baker % (Auto) 6.2 (2-11) % Eos % (Auto) 6.9 H (0-4) % Baso % (Auto) 0.9 (0-2) % Lymph # (Auto) 2.4 (1.2-4.9) X10*3/uL Baker # (Auto) 0.5 (0.1-1.2) X10*3/uL Eos # (Auto) 0.5 H (0.0-0.4) X10*3/uL Baso # (Auto) 0.1 (0.0-0.2) X10*3/uL Abs Immat Gran (auto) 0.01 (0.00-0.03) X10*3/uL Absolute Neuts (auto) 4.3 (2.0-8.3) x10*3/uL Absolute Nucleated RBC 0.000 (0.0-0.012) X10*3/uL Nucleated RBC % (auto) 0.0 (0.0-0.2) /100WBC Sodium 140 (135-145) mmol/L Potassium 3.7 (3.3-5.1) mmol/L Chloride 112 H (96-108) mmol/L Carbon Dioxide 19 L (22-29) mmol/L Anion Gap 13 (12-20) BUN 9 (9-16) mg/dL Creatinine 0.60 (0.5-1.4) mg/dL Estim Creat Clear Calc 86.0 Estimated GFR > 60 Random Glucose 94 (60-115) mg/dL Calcium 9.6 (8.4-10.2) mg/dL Total Bilirubin 0.3 (0.0-1.0) mg/dL AST 28 (5-31) U/L ALT 28 (0-31) U/L Alkaline Phosphatase 135 H (39-117) U/L Ammonia 25 (13-55) umol/L Total Creatine Kinase 62 (26-140) U/L Total Protein 7.3 (6.5-8.0) g/dL Albumin 4.3 (3.5-5.0) g/dL Urine Color Yellow Urine Appearance Cloudy Urine pH 6.0 (5.0-9.0) Ur Specific Blackwell 1.020 (1.005-1.025) Urine Protein Negative (Neg-Trace) mg/dL Urine Glucose (UA) Negative (Negative) mg/dL Urine Ketones Negative (Negative) mg/dL Urine Blood Negative (Negative) Urine Nitrite Negative (Negative) Ur Leukocyte Esterase Large (3+) H (Negative) Urine RBC 0-2 (0-2) /HPF Urine WBC 21-50 H (0-5) /HPF Ur Squamous Epith Cells 6-10 (0-2) /HPF Urine Bacteria 1+ (None Seen) Hyaline Casts 3-5 (0-2) /LPF Influenza Type A (PCR) NEGATIVE (Negative) Influenza Type B (PCR) NEGATIVE (Negative) RSV RNA Qual (PCR) NEGATIVE (Negative) SARS-CoV-2 RNA (RT-PCR) NEGATIVE (Negative) Independent Interpretation I performed an independent interpretation of an: Plain X-Ray Prescription Management I considered prescription management with: Pain Medication and Antibiotic Discharge Plan Discharge Clinical Impression: Cough Qualifiers: Cough type: acute Qualified Code(s): R05.1 - Acute cough UTI (urinary tract infection) Qualifiers: Urinary tract infection type: site unspecified Hematuria presence: without hematuria Qualified Code(s): N39.0 - Urinary tract infection, site not specified Patient Disposition: Home, Self-Care Prescriptions: New acetaminophen 500 mg tablet 1,000 mg PO Q8H PRN (Reason: pain) 10 Days Qty: 60 0RF ibuprofen 400 mg tablet 400 mg PO Q8H PRN (Reason: pain) Qty: 30 0RF cephalexin 500 mg tablet 500 mg PO Q8H 7 Days Qty: 21 0RF benzonatate 200 mg capsule 200 mg PO TID PRN (Reason: cough) Qty: 20 0RF prednisone 20 mg tablet 40 mg PO DAILY 5 Days Qty: 10 0RF No Action atorvastatin 40 mg tablet 40 mg PO DAILY albuterol sulfate 2.5 mg /3 mL (0.083 %) solution for nebulization 2.5 mg Q6H PRN (Reason: Wheezing) omeprazole 40 mg capsule,delayed release(DR/EC) 40 mg PO DAILY budesonide-formoterol [Symbicort] 160-4.5 mcg/actuation HFA aerosol inhaler inhalation BID Patient Comments: pt unsure which medication she takes Incruse Ellipta 62.5 mcg/actuation blister with device 1 inh inhalation DAILY Patient Comments: pt unsure which medication she takes risperidone 0.5 mg tablet 0.5 mg PO BID cetirizine 10 mg Tablet 10 mg PO DAILY montelukast 10 mg tablet 10 mg PO DAILY zolpidem 5 mg Tablet 5 mg PO BEDTIME escitalopram oxalate 10 mg Tablet 10 mg PO DAILY ramelteon [Rozerem] 8 mg Tablet 8 mg PO BEDTIME Print Language: Palestinian
--- NOTE | 2025-06-10 12:55 | ECG_ITS ---
Test Reason : sob Blood Pressure : */* mmHG Vent. Rate : 103 BPM Atrial Rate : 103 BPM P-R Int : 138 ms QRS Dur : 116 ms QT Int : 386 ms P-R-T Axes : 60 -16 -8 degrees QTcB Int : 505 ms Sinus tachycardia Incomplete right bundle branch block Nonspecific ST and T wave abnormality Abnormal ECG When compared with ECG of 02-Apr-2025 23:01, Vent. rate has increased by 52 bpm Incomplete right bundle branch block is now Present Referred By: Tahira Mari Electronically Signed By: Magen Scott
--- NOTE | 2025-06-10 13:08 | PC.NURSE ---
pt had episode of intense shaking. Spo2 monitoring remained in high 90s. pt abruptly stopped. Provider at bedside for evaluation. 2mg versed ordered and administered.
[2025-06-10] MEDS: Lactated Ringers 1,000 ML 999 ML IV (13:16)
[2025-06-10] MEDS: Albuterol Sulfate 5 MG, Albuterol/Iprat 2.5/0.5MG 3 ML 3 ML INHALE (13:18)
[2025-06-10 13:19] VITALS: PULSE 76; RESP 22; O2SAT 97
[2025-06-10 13:25] LABS: MANUAL DIFF FLAG NO
[2025-06-10 13:28] LABS: Hematocrit 40.4 % (37.0-47.0); Hemoglobin 12.8 g/dl (12.0-16.0); Imm Gran Abs Auto 0.01 X10*3/uL (0.00-0.03); Imm Gran Pct Auto 0.1 % (0.0-0.4); Lymphocytes Absolute Auto 2.4 X10*3/uL (1.2-4.9); Mean Corpuscular HGB Conc 31.7 g/dl (31.0-35.0); Mean Corpuscular Hemoglobin 29.1 pg (27.0-33.0); Mean Corpuscular Volume 91.8 fL (80.0-98.0); NRBC Abs Auto 0.000 X10*3/uL (0.0-0.012); NRBC Pct Auto 0.0 /100WBC (0.0-0.2); Platelet Count 286 X10*3/uL (160-400); Red Blood Count 4.40 X10*6/uL (4.20-5.50); White Blood Count 7.8 X10*3/uL (4.8-10.8)
[2025-06-10 13:42] LABS: Alanine Aminotransferase 28 U/L (0-31); Albumin Level 4.3 g/dL (3.5-5.0); Alkaline Phosphatase 135 U/L (39-117); Anion Gap 13 (12-20); Aspartate Amino Transferase 28 U/L (5-31); Blood Urea Nitrogen 9 mg/dL (9-16); Calcium 9.6 mg/dL (8.4-10.2); Carbon Dioxide 19 mmol/L (22-29); Chloride 112 mmol/L (96-108); Creatinine Clr Calc Pharmacy 86.0; Estimated Glomerular Filt Rate > 60; Potassium 3.7 mmol/L (3.3-5.1); Sodium 140 mmol/L (135-145); Total Protein 7.3 g/dL (6.5-8.0)
[2025-06-10 14:07] LABS: Ammonia 25 umol/L (13-55)
[2025-06-10 14:14] LABS: Resp Syncy Virus RNA Qual PCR NEGATIVE (Negative); SARS COV2 PCR INHOUSE NEGATIVE (Negative)
[2025-06-10 14:23] LABS: Appearance Urine Cloudy; Glucose Urine UA Negative (Negative); PH 6.0 (5.0-9.0); Specific Gravity - Urine 1.020 (1.005-1.025); UMIC TRIGGER UA YES
[2025-06-10] MEDS: Magnesium Sulfate/H2O 2 GM/50 ML PIGGYBACK IV (14:27)
[2025-06-10 17:08] VITALS: BP 106/47; PULSE 82; RESP 15; TEMP 36.7; O2SAT 95
[2025-06-10 17:16] VITALS: BP 106/47; PULSE 82; RESP 15; TEMP 36.7; O2SAT 95
== END 2025-06-10 17:23 | disposition home or self-care (01) ==
PROVIDERS: Emergency Provider Student in an Organized Health Care Education/Training Program
DX: R05.1 Acute cough (principal); N39.0 Urinary tract infection, site not specified; R06.02 Shortness of breath; R00.0 Tachycardia, unspecified; I45.10 Unspecified right bundle-branch block; Z03.818 Encounter for observation for suspected exposure to other biological agents ruled out
CPT/HCPCS: 71045; 80053; 81001; 82140; 82550; 85025; 87637; 93005; 94640; 96361; 96365; 96375; 99284; 99285; J1885; J2250; J3475; J7120

== ENCOUNTER → 2025-06-10 12:55 | Outpatient (BNV) | payer OTHER, SELFPAY | PROVIDERS: Emergency Provider Student in an Organized Health Care Education/Training Program; Visit Provider Internal Medicine Cardiovascular Disease | DX: R00.0 Tachycardia, unspecified (principal); I45.10 Unspecified right bundle-branch block | CPT/HCPCS: 93010 ==

== ENCOUNTER → 2025-06-10 13:07 | Outpatient (BNV) | payer OTHER, SELFPAY | PROVIDERS: Emergency Provider Student in an Organized Health Care Education/Training Program; Visit Provider Radiology Diagnostic Radiology | DX: R05.9 Cough, unspecified (principal) | CPT/HCPCS: 71045 ==